=== PATIENT | female | born 1955 ===

== ENCOUNTER 2020-02-15 19:04 | Inpatient (IN) ==
[2020-02-15] MEDS ORDERED: ONDANSETRON 4 MG/2 ML VIAL IV PRN (21:31)
[2020-02-15] MEDS ORDERED: ZALEPLON 5 MG CAPSULE PO PRN (21:31)
[2020-02-15] MEDS ORDERED: GLUCAGON 1 MG VIAL IM PRN ×2 (21:31)
[2020-02-15] MEDS ORDERED: MORPHINE 4 MG/1 ML VIAL IV PRN (21:31)
[2020-02-15] MEDS ORDERED: guaiFENesin/DM ER 600-30 MG TABLET PO PRN (21:31)
[2020-02-15] MEDS ORDERED: NICOTINE 21 MG/24 HR PATCH TRANSDERM PRN (21:31)
[2020-02-15] MEDS ORDERED: DEXTROSE 50% 25 GM/50 ML VIAL IV PRN ×2 (21:31)
[2020-02-15] MEDS ORDERED: diphenhydrAMINE CAP 25 MG CAPSULE PO PRN (21:31)
[2020-02-15] MEDS ORDERED: AZITHROMYCIN INJ 500 MG in SODIUM CHLORIDE 0.9% 250 ML IV SCH (22:00)
[2020-02-15 22:41] LABS: Hematocrit 38.3 VOL% (35.7-47.0); Hemoglobin 12.7 GM/DL (12.0-16.0); Immature Granulocytes % 0.3 %; Immature Granulocytes Absolute 0.02 #; Lymphocytes # 0.4 10*3/uL (1.4-4.0); Lymphocytes % 6.3 % (21.3-54.2); Mean Corpuscular HGB Conc 33.2 GM/DL (32-36); Mean Corpuscular Volume 81.3 FL (87-102); Mean Platelet Volume 9.7 FL (9.6-12.0); Monocytes % 3.3 % (1.7-12.7); Neutrophils % 90.1 % (38.7-73.9); Platelet Count 195 T/CUMM (130-400); Red Blood Count 4.71 MC/CUMM (3.8-5.5); Red Cell Distribution Width 13.2 % (9.3-17.3); White Blood Count 6.1 T/CUMM (4-12)
[2020-02-15 22:42] LABS: Calcium 8.3 MG/DL (8.5-10.1); Osmolality,Calculated 269.7 MOS/KG (273-304)
[2020-02-15] MEDS: SODIUM CHLORIDE 0.9% 1,000 ML IV SCH (23:28)
[2020-02-15] MEDS: ALBUTEROL INHALER 18 GM INH SCH (23:28)
[2020-02-15] MEDS: LEVOFLOXACIN INJ 750 MG in PREMIX 1 EACH IV SCH (23:32)
[2020-02-16] MEDS: ALBUTEROL INHALER 18 GM INH SCH ×6 (03:30→23:40)
[2020-02-16 05:36] LABS: Hematocrit 39.3 VOL% (35.7-47.0); Hemoglobin 12.4 GM/DL (12.0-16.0); Immature Granulocytes % 0.4 %; Immature Granulocytes Absolute 0.02 #; Lymphocytes # 0.3 10*3/uL (1.4-4.0); Lymphocytes % 5.5 % (21.3-54.2); Mean Corpuscular HGB Conc 31.6 GM/DL (32-36); Mean Corpuscular Volume 83.6 FL (87-102); Mean Platelet Volume 9.7 FL (9.6-12.0); Monocytes % 1.6 % (1.7-12.7); Neutrophils % 92.5 % (38.7-73.9); Platelet Count 213 T/CUMM (130-400); Red Cell Distribution Width 13.2 % (9.3-17.3); White Blood Count 5.5 T/CUMM (4-12)
[2020-02-16 06:01] LABS: Albumin 2.9 G/DL (3.4-5.0); Osmolality,Calculated 274.1 MOS/KG (273-304); Risk Ratio 3.07; Total Protein 6.9 G/DL (6.4-8.3)
[2020-02-16 07:13] LABS: Band Neutrophils 4 % (0-10); Hypochromasia Slight; Lymphocytes 5 % (20-55); Microcytosis Slight; Segmented Neutrophils 88 % (50-85); Total Cells Counted 100
[2020-02-16 07:14] LABS: Platelet Estimate Normal
[2020-02-16] MEDS: PANTOPRAZOLE 40 MG TABLET PO SCH (08:30)
[2020-02-16] MEDS: INSULIN LISPRO 100 UNIT/ML SUBCUT SCH ×6 (08:30→21:45)
[2020-02-16] MEDS: DOCUSATE SODIUM 100 MG CAPSULE PO SCH ×2 (08:30→20:45)
[2020-02-16] MEDS ORDERED: ENOXAPARIN 40 MG/0.4 ML SYRINGE SUBCUT SCH (09:00)
[2020-02-16] MEDS ORDERED: AZITHROMYCIN 250 MG TABLET PO SCH (09:00)
[2020-02-16] MEDS: VANCOMYCIN INJ 1,250 MG in SODIUM CHLORIDE 0.9% 250 ML IV SCH ×2 (09:15→20:45)
[2020-02-16] MEDS: SODIUM CHLORIDE 0.9% 1,000 ML IV SCH (14:11)
[2020-02-16] MEDS: INSULIN GLARGINE 100 UNIT/ML SUBCUT SCH (22:03)
[2020-02-16] MEDS: LEVOFLOXACIN INJ 750 MG in PREMIX 1 EACH IV SCH (23:40)
[2020-02-17] MEDS: SODIUM CHLORIDE 0.9% 1,000 ML IV SCH ×2 (00:09→09:29)
[2020-02-17] MEDS: ALBUTEROL INHALER 18 GM INH SCH ×6 (02:34→23:11)
[2020-02-17 05:40] LABS: Basophils % 0.1 % (0.0-0.8); Hemoglobin 11.8 GM/DL (12.0-16.0); Immature Granulocytes % 0.6 %; Immature Granulocytes Absolute 0.06 #; Lymphocytes # 0.6 10*3/uL (1.4-4.0); Lymphocytes % 6.2 % (21.3-54.2); Mean Corpuscular HGB Conc 31.9 GM/DL (32-36); Mean Corpuscular Volume 81.5 FL (87-102); Mean Platelet Volume 9.8 FL (9.6-12.0); Monocytes % 3.9 % (1.7-12.7); Neutrophils % 89.2 % (38.7-73.9); Platelet Count 246 T/CUMM (130-400); Red Blood Count 4.54 MC/CUMM (3.8-5.5); Red Cell Distribution Width 13.2 % (9.3-17.3); White Blood Count 9.7 T/CUMM (4-12)
[2020-02-17 06:02] LABS: Alanine Aminotransferase 33 U/L (13-56); Albumin 2.9 G/DL (3.4-5.0); Alkaline Phosphatase 89 U/L (45-117); Aspartate Amino Transferase 34 U/L (0-37); Bilirubin,Direct < 0.100 MG/DL (0.0-0.20); Bilirubin,Indirect 0.5 MG/DL (0.0-1.0); Blood Urea Nitrogen 11 MG/DL (7-18); Calcium 8.4 MG/DL (8.5-10.1); Estimated Glom Filtration Rate 80 ML/MIN; Glucose 222 MG/DL (74-106); Total Protein 6.8 G/DL (6.4-8.3)
[2020-02-17] MEDS ORDERED: guaiFENesin 200 MG/10 ML UDCUP PO PRN (07:51)
[2020-02-17] MEDS ORDERED: FUROSEMIDE 40 MG/4 ML VIAL ONE (07:59)
[2020-02-17] MEDS ORDERED: POLYVINYL ALCOHOL 1.4% OPH SOLN 15 ML BOTTLE BOTH EYES PRN (09:35)
[2020-02-17] MEDS: ENOXAPARIN 40 MG/0.4 ML SYRINGE SUBCUT SCH ×2 (10:33→22:20)
[2020-02-17] MEDS: INSULIN LISPRO 100 UNIT/ML SUBCUT SCH ×8 (10:33→22:20)
[2020-02-17] MEDS: PANTOPRAZOLE 40 MG TABLET PO SCH (10:34)
[2020-02-17] MEDS: VANCOMYCIN INJ 1,250 MG in SODIUM CHLORIDE 0.9% 250 ML IV SCH ×2 (10:34→21:00)
[2020-02-17] MEDS: DOCUSATE SODIUM 100 MG CAPSULE PO SCH ×2 (10:34→21:00)
[2020-02-17] MEDS: ACETAMINOPHEN 325 MG TABLET PO PRN (13:58)
[2020-02-17] MEDS: AZITHROMYCIN 250 MG TABLET PO SCH (17:07)
[2020-02-17] MEDS: OLOPATADINE 0.1% OPH SOLN 5 ML BOTTLE BOTH EYES SCH (21:00)
[2020-02-17] MEDS: SIMVASTATIN 10 MG TABLET PO SCH (21:00)
[2020-02-17] MEDS: INSULIN GLARGINE 100 UNIT/ML SUBCUT SCH (22:20)
[2020-02-18] MEDS ORDERED: ALPRAZolam 0.25 MG TABLET PO PRN (01:27)
[2020-02-18] MEDS: ALBUTEROL INHALER 18 GM INH SCH ×3 (03:52→18:09)
[2020-02-18 06:32] LABS: Albumin 2.6 G/DL (3.4-5.0); Bilirubin,Total 0.5 MG/DL (0.2-1.0); Calcium 8.1 MG/DL (8.5-10.1); Total Protein 6.5 G/DL (6.4-8.3)
[2020-02-18] MEDS: PANTOPRAZOLE 40 MG TABLET PO SCH (09:00)
[2020-02-18] MEDS: AZITHROMYCIN 250 MG TABLET PO SCH (09:00)
[2020-02-18] MEDS: DOCUSATE SODIUM 100 MG CAPSULE PO SCH ×2 (09:00→21:28)
[2020-02-18] MEDS: VANCOMYCIN INJ 1,250 MG in SODIUM CHLORIDE 0.9% 250 ML IV SCH ×2 (09:00→20:56)
[2020-02-18] MEDS: MULTIVITAMIN (CENTRUM) TABLET PO SCH (09:00)
[2020-02-18] MEDS: ACETAMINOPHEN 325 MG TABLET PO PRN (09:00)
[2020-02-18] MEDS: MONTELUKAST 10 MG TABLET PO SCH (09:01)
[2020-02-18] MEDS: ENOXAPARIN 40 MG/0.4 ML SYRINGE SUBCUT SCH ×2 (09:10→21:31)
[2020-02-18] MEDS: INSULIN LISPRO 100 UNIT/ML SUBCUT SCH ×5 (09:11→17:31)
[2020-02-18] MEDS: OLOPATADINE 0.1% OPH SOLN 5 ML BOTTLE BOTH EYES SCH ×2 (09:11→22:22)
[2020-02-18] MEDS ORDERED: LORazepam 2 MG/1 ML VIAL IV ONE (10:30)
[2020-02-18 11:30] LABS: ABG Base Excess 0.6 MMOL/L (-2.5-2.5); ABG HCO3 24.7 MMOL/L (20-26); ABG Oxygen Saturation 84.6 % (95-100); ABG PCO2 38.7 MM HG (35-48); ABG PH 7.417 (7.35-7.45); ABG PO2 51.4 MM HG (80-95); ABG TCO2 22.2 MMOL/L (23-27)
[2020-02-18] MEDS: cefTRIAXone 1,000 MG in SYRINGE 1 EACH IV SCH (12:35)
[2020-02-18] MEDS ORDERED: FUROSEMIDE 40 MG/4 ML VIAL IV ONE (14:29)
[2020-02-18 20:51] LABS: ABG Base Excess -0.4 MMOL/L (-2.5-2.5); ABG Oxygen Saturation 94.9 % (95-100); ABG PCO2 33.9 MM HG (35-48); ABG PO2 77.7 MM HG (80-95); ABG TCO2 19.9 MMOL/L (23-27)
[2020-02-18] MEDS: SIMVASTATIN 10 MG TABLET PO SCH (21:28)
[2020-02-18] MEDS: LORazepam 2 MG/1 ML VIAL IV PRN (21:32)
[2020-02-18] MEDS: INSULIN GLARGINE 100 UNIT/ML SUBCUT SCH (22:22)
[2020-02-19] MEDS: INSULIN LISPRO 100 UNIT/ML SUBCUT SCH ×4 (00:11→17:51)
[2020-02-19] MEDS: VANCOMYCIN INJ 1,250 MG in SODIUM CHLORIDE 0.9% 250 ML IV SCH (08:01)
[2020-02-19] MEDS: MULTIVITAMIN (CENTRUM) TABLET PO SCH (08:02)
[2020-02-19] MEDS: MONTELUKAST 10 MG TABLET PO SCH (08:02)
[2020-02-19] MEDS: DOCUSATE SODIUM 100 MG CAPSULE PO SCH ×2 (08:02→21:04)
[2020-02-19] MEDS: ENOXAPARIN 40 MG/0.4 ML SYRINGE SUBCUT SCH ×2 (08:02→21:04)
[2020-02-19] MEDS: PANTOPRAZOLE 40 MG TABLET PO SCH (08:02)
[2020-02-19] MEDS: AZITHROMYCIN 250 MG TABLET PO SCH (08:02)
[2020-02-19] MEDS: OLOPATADINE 0.1% OPH SOLN 5 ML BOTTLE BOTH EYES SCH ×2 (08:05→21:05)
[2020-02-19 08:10] LABS: Basophils % 0.1 % (0.0-0.8); Eosinophils % 0.1 % (0.00-10.9); Hematocrit 40.1 VOL% (35.7-47.0); Hemoglobin 12.6 GM/DL (12.0-16.0); Immature Granulocytes % 0.7 %; Immature Granulocytes Absolute 0.07 #; Lymphocytes # 0.8 10*3/uL (1.4-4.0); Lymphocytes % 7.2 % (21.3-54.2); Mean Corpuscular HGB Conc 31.4 GM/DL (32-36); Mean Corpuscular Volume 83.5 FL (87-102); Mean Platelet Volume 9.3 FL (9.6-12.0); Monocytes % 3.9 % (1.7-12.7); Platelet Count 287 T/CUMM (130-400); Red Cell Distribution Width 13.6 % (9.3-17.3); White Blood Count 10.5 T/CUMM (4-12)
[2020-02-19 08:31] LABS: Calcium 6.4 MG/DL (8.5-10.1); Osmolality,Calculated 283.1 MOS/KG (273-304)
[2020-02-19] MEDS ORDERED: MAGNESIUM SULF RIDER 4 GM in PREMIX 1 EACH IV PRN ×2 (09:00→12:49)
[2020-02-19] MEDS ORDERED: MAGNESIUM SULF RIDER 2 GM in PREMIX 1 EACH IV SCH (09:00)
[2020-02-19] MEDS ORDERED: MAGNESIUM SULF RIDER 2 GM in PREMIX 1 EACH IV PRN (09:11)
[2020-02-19] MEDS: cefTRIAXone 1,000 MG in SYRINGE 1 EACH IV SCH (09:13)
[2020-02-19] MEDS ORDERED: DEXAMETHASONE 4 MG/1 ML VIAL IV SCH (15:30)
[2020-02-19] MEDS ORDERED: SODIUM CHLORIDE 0.9% 250 ML IV ONE (15:32)
[2020-02-19] MEDS: DEXAMETHASONE 4 MG/1 ML VIAL IV SCH (15:54)
[2020-02-19] MEDS: SODIUM CHLORIDE 0.9% 1,000 ML IV SCH (16:30)
[2020-02-19] MEDS: INSULIN GLARGINE 100 UNIT/ML SUBCUT SCH (21:04)
[2020-02-19] MEDS: CALCIUM CARBONATE CHEW 500 MG TABLET PO SCH (21:05)
[2020-02-19] MEDS: SIMVASTATIN 10 MG TABLET PO SCH (21:05)
[2020-02-19] MEDS: POTASSIUM CHLORIDE RIDER 10 MEQ in PREMIX 1 EACH IV PRN (21:34)
[2020-02-20] MEDS: INSULIN LISPRO 100 UNIT/ML SUBCUT SCH ×4 (00:38→17:50)
[2020-02-20] MEDS: SODIUM CHLORIDE 0.9% 1,000 ML IV SCH ×3 (00:43→22:13)
[2020-02-20] MEDS: POTASSIUM CHLORIDE RIDER 10 MEQ in PREMIX 1 EACH IV PRN (00:44)
[2020-02-20] MEDS ORDERED: SODIUM CHLORIDE 0.9% 500 ML IV ONE (01:03)
[2020-02-20 05:02] LABS: Basophils % 0.1 % (0.0-0.8); Hematocrit 37.6 VOL% (35.7-47.0); Hemoglobin 11.8 GM/DL (12.0-16.0); Immature Granulocytes % 0.8 %; Immature Granulocytes Absolute 0.08 #; Lymphocytes # 0.4 10*3/uL (1.4-4.0); Lymphocytes % 4.4 % (21.3-54.2); Mean Corpuscular HGB Conc 31.4 GM/DL (32-36); Mean Corpuscular Volume 83.9 FL (87-102); Mean Platelet Volume 9.2 FL (9.6-12.0); Monocytes % 3.5 % (1.7-12.7); Neutrophils % 91.2 % (38.7-73.9); Platelet Count 263 T/CUMM (130-400); Red Blood Count 4.48 MC/CUMM (3.8-5.5); Red Cell Distribution Width 13.2 % (9.3-17.3); White Blood Count 9.8 T/CUMM (4-12)
[2020-02-20 05:25] LABS: Calcium 7.5 MG/DL (8.5-10.1); Osmolality,Calculated 276.5 MOS/KG (273-304)
[2020-02-20 05:51] LABS: Lymphocytes 5 % (20-55); Segmented Neutrophils 94 % (50-85); Total Cells Counted 100
[2020-02-20 05:52] LABS: Burr Cells Slight; Ovalocytes Slight; Platelet Estimate Adequate
[2020-02-20] MEDS: ENOXAPARIN 40 MG/0.4 ML SYRINGE SUBCUT SCH (08:13)
[2020-02-20] MEDS: AZITHROMYCIN 250 MG TABLET PO SCH (08:14)
[2020-02-20] MEDS: MULTIVITAMIN (CENTRUM) TABLET PO SCH (08:14)
[2020-02-20] MEDS: MONTELUKAST 10 MG TABLET PO SCH (08:14)
[2020-02-20] MEDS: DOCUSATE SODIUM 100 MG CAPSULE PO SCH ×2 (08:14→20:52)
[2020-02-20] MEDS: CALCIUM CARBONATE CHEW 500 MG TABLET PO SCH ×2 (08:14→20:52)
[2020-02-20] MEDS: PANTOPRAZOLE 40 MG TABLET PO SCH (08:14)
[2020-02-20] MEDS: OLOPATADINE 0.1% OPH SOLN 5 ML BOTTLE BOTH EYES SCH ×2 (08:56→20:52)
[2020-02-20] MEDS: cefTRIAXone 1,000 MG in SYRINGE 1 EACH IV SCH (09:00)
[2020-02-20] MEDS: DEXAMETHASONE 4 MG/1 ML VIAL IV SCH (15:09)
[2020-02-20] MEDS: INSULIN GLARGINE 100 UNIT/ML SUBCUT SCH (20:52)
[2020-02-20] MEDS: SIMVASTATIN 10 MG TABLET PO SCH (20:52)
[2020-02-21] MEDS: INSULIN LISPRO 100 UNIT/ML SUBCUT SCH ×5 (00:49→21:33)
[2020-02-21 01:30] LABS: Apearance,Urine CLOUDY (Clear); Bilirubin,Urine Negative (Negative); Blood, Urine Large mg/dL (Negative); Glucose,Urine (UA) Negative (Negative); Ketones,Urine 5 mg/dL (Negative); Mucus,Urine Occasional /LPF (Occasional); Nitrite,Urine Negative (Negative); Protein,Urine 100 MG/DL; RBC,Urine 135 /HPF (0-4); Squamous Epithelial Cell,Urine Occasional /HPF (0-10); Urine Color Amber (Yellow); Urine Specific Gravity 1.009 (1.001-1.035); Urine Urobilinogen < 2.0 EU/DL (0.2-1.0); WBC,Urine 199 /HPF (0-6)
[2020-02-21 04:33] LABS: ABG Base Excess -9.4 MMOL/L (-2.5-2.5); ABG HCO3 15.5 MMOL/L (20-26); ABG Oxygen Saturation 98.1 % (95-100); ABG PH 7.318 (7.35-7.45); ABG PO2 157.1 MM HG (80-95); ABG TCO2 16.5 MMOL/L (23-27); Allen Test Positive; Pt O2 Delivery Device BIPAP
[2020-02-21 04:38] LABS: Basophils % 0.1 % (0.0-0.8); Hematocrit 37.2 VOL% (35.7-47.0); Hemoglobin 11.8 GM/DL (12.0-16.0); Immature Granulocytes % 0.8 %; Lymphocytes # 0.6 10*3/uL (1.4-4.0); Lymphocytes % 4.4 % (21.3-54.2); Mean Corpuscular HGB Conc 31.7 GM/DL (32-36); Mean Corpuscular Volume 82.5 FL (87-102); Mean Platelet Volume 9.2 FL (9.6-12.0); Neutrophils % 88.7 % (38.7-73.9); Platelet Count 336 T/CUMM (130-400); Red Blood Count 4.51 MC/CUMM (3.8-5.5); Red Cell Distribution Width 13.2 % (9.3-17.3); White Blood Count 13.3 T/CUMM (4-12)
[2020-02-21 05:03] LABS: Calcium 7.4 MG/DL (8.5-10.1); Osmolality,Calculated 276.8 MOS/KG (273-304)
[2020-02-21 05:48] LABS: Lymphocytes 1 % (20-55); Platelet Estimate Adequate; Segmented Neutrophils 93 % (50-85); Total Cells Counted 100
[2020-02-21] MEDS ORDERED: ENOXAPARIN 40 MG/0.4 ML SYRINGE SUBCUT SCH (09:00)
[2020-02-21] MEDS: SODIUM CHLORIDE 0.9% 1,000 ML IV SCH ×2 (09:36→17:25)
[2020-02-21] MEDS: MULTIVITAMIN (CENTRUM) TABLET PO SCH (09:36)
[2020-02-21] MEDS: DOCUSATE SODIUM 100 MG CAPSULE PO SCH ×2 (09:36→20:38)
[2020-02-21] MEDS: AZITHROMYCIN 250 MG TABLET PO SCH (09:37)
[2020-02-21] MEDS: MONTELUKAST 10 MG TABLET PO SCH (09:37)
[2020-02-21] MEDS: OLOPATADINE 0.1% OPH SOLN 5 ML BOTTLE BOTH EYES SCH ×2 (09:37→21:34)
[2020-02-21] MEDS: PANTOPRAZOLE 40 MG TABLET PO SCH (09:37)
[2020-02-21] MEDS: CALCIUM CARBONATE CHEW 500 MG TABLET PO SCH ×2 (09:37→20:38)
[2020-02-21] MEDS: cefTRIAXone 1,000 MG in SYRINGE 1 EACH IV SCH (09:37)
[2020-02-21] MEDS: LORazepam 2 MG/1 ML VIAL IV PRN (13:49)
[2020-02-21] MEDS: DEXAMETHASONE 4 MG/1 ML VIAL IV SCH (15:54)
[2020-02-21] MEDS ORDERED: HALOPERIDOL 5 MG/ML AMP IV ONE (16:09)
[2020-02-21] MEDS ORDERED: ZIPRASIDONE 20 MG/1 ML VIAL IM ONE (18:41)
[2020-02-21] MEDS: SIMVASTATIN 10 MG TABLET PO SCH (20:38)
[2020-02-21] MEDS: INSULIN GLARGINE 100 UNIT/ML SUBCUT SCH (21:33)
[2020-02-21] MEDS: ENOXAPARIN 40 MG/0.4 ML SYRINGE SUBCUT SCH (21:33)
[2020-02-21] MEDS ORDERED: HALOPERIDOL 5 MG/ML AMP IM ONE (21:47)
[2020-02-22] MEDS: LORazepam 2 MG/1 ML VIAL IV PRN (00:53)
[2020-02-22] MEDS ORDERED: HALOPERIDOL 5 MG/ML AMP IM PRN (01:06)
[2020-02-22] MEDS: SODIUM CHLORIDE 0.9% 1,000 ML IV SCH ×2 (04:00→07:54)
[2020-02-22 04:54] LABS: ABG Base Excess -14.2 MMOL/L (-2.5-2.5); ABG HCO3 13.8 MMOL/L (20-26); ABG Oxygen Saturation 87.2 % (95-100); ABG PCO2 39.6 MM HG (35-48); ABG PO2 61.2 MM HG (80-95)
[2020-02-22 04:57] LABS: ABG PH 7.159 (7.35-7.45)
[2020-02-22 05:45] LABS: Basophils % 0.2 % (0.0-0.8); Hematocrit 36.6 VOL% (35.7-47.0); Hemoglobin 11.8 GM/DL (12.0-16.0); Immature Granulocytes % 0.4 %; Immature Granulocytes Absolute 0.04 #; Lymphocytes # 0.3 10*3/uL (1.4-4.0); Lymphocytes % 3.2 % (21.3-54.2); Mean Corpuscular HGB Conc 32.2 GM/DL (32-36); Mean Corpuscular Volume 82.1 FL (87-102); Mean Platelet Volume 9.6 FL (9.6-12.0); Monocytes % 2.2 % (1.7-12.7); Platelet Count 317 T/CUMM (130-400); Red Blood Count 4.46 MC/CUMM (3.8-5.5)
[2020-02-22 05:51] LABS: Albumin 2.1 G/DL (3.4-5.0); Calcium 7.2 MG/DL (8.5-10.1)
[2020-02-22 05:53] LABS: Calcium 7.2 MG/DL (8.5-10.1); Osmolality,Calculated 288.5 MOS/KG (273-304)
[2020-02-22] MEDS ORDERED: SODIUM BICARB INJ 100 MEQ in STERILE WATER INJ 1,000 ML IV SCH (08:00)
[2020-02-22] MEDS ORDERED: ETOMIDATE 20 MG/10 ML VIAL IV ONE ×3 (08:52→09:21)
[2020-02-22] MEDS ORDERED: SUCCINYLCHOLINE 200 MG/10 ML VIAL ONE ×2 (08:53→09:21)
[2020-02-22] MEDS: CALCIUM CARBONATE CHEW 500 MG TABLET PO SCH ×2 (09:21→22:05)
[2020-02-22] MEDS ORDERED: SUCCINYLCHOLINE 200 MG/10 ML VIAL IV ONE (09:21)
[2020-02-22] MEDS: DOCUSATE SODIUM 100 MG CAPSULE PO SCH ×2 (09:21→22:05)
[2020-02-22] MEDS: INSULIN LISPRO 100 UNIT/ML SUBCUT SCH ×3 (09:21→17:56)
[2020-02-22] MEDS: MONTELUKAST 10 MG TABLET PO SCH (09:22)
[2020-02-22] MEDS ORDERED: MIDAZOLAM 10 MG/2 ML VIAL IM ONE (09:33)
[2020-02-22] MEDS ORDERED: MIDAZOLAM 10 MG/2 ML VIAL ONE (09:33)
[2020-02-22] MEDS ORDERED: ATROPINE 1 MG/10 ML SYRINGE ONE (09:33)
[2020-02-22] MEDS ORDERED: ATROPINE 1 MG/10 ML SYRINGE IV ONE (09:34)
[2020-02-22] MEDS ORDERED: DOPamine 800 MG/250 ML PREMIX IV ONE (09:35)
[2020-02-22] MEDS ORDERED: NOREPINEPHRINE 4 MG/4 ML VIAL IV ONE (09:35)
[2020-02-22] MEDS ORDERED: DOPamine 800 MG/250 ML PREMIX IV PRN (09:44)
[2020-02-22] MEDS: MULTIVITAMIN (CENTRUM) TABLET PO SCH (10:31)
[2020-02-22] MEDS: PANTOPRAZOLE 40 MG TABLET PO SCH (10:31)
[2020-02-22 10:48] LABS: Band Neutrophils 22 % (0-10); Lymphocytes 3 % (20-55); Metamyelocytes 1 %; Microcytosis 2+; Segmented Neutrophils 73 % (50-85); Total Cells Counted 100
[2020-02-22 10:49] LABS: Burr Cells Few; Ovalocytes Slight; Platelet Estimate Adequate; Polychromasia Slight
[2020-02-22] MEDS: NOREPINEPHRINE 8 MG in SODIUM CHLORIDE 0.9% 242 ML IV PRN (11:00)
[2020-02-22 11:15] LABS: Allen Test Positive; Pt O2 Delivery Device Ventilator
[2020-02-22 11:16] LABS: ABG Base Excess -14.1 MMOL/L (-2.5-2.5); ABG HCO3 13.6 MMOL/L (20-26); ABG Oxygen Saturation 90.5 % (95-100); ABG PCO2 49.5 MM HG (35-48); ABG PO2 74.2 MM HG (80-95); ABG TCO2 14.8 MMOL/L (23-27)
[2020-02-22] MEDS ORDERED: SODIUM BICARBONATE 50 MEQ/50 ML VIAL IV ONE ×2 (11:16→11:18)
[2020-02-22 11:17] LABS: ABG PH 7.109 (7.35-7.45)
[2020-02-22] MEDS ORDERED: DILTIAZEM 25 MG/5 ML VIAL IV ONE (11:17)
[2020-02-22] MEDS ORDERED: DILTIAZEM 50 MG/10 ML VIAL IV ONE (11:18)
[2020-02-22] MEDS: OLOPATADINE 0.1% OPH SOLN 5 ML BOTTLE BOTH EYES SCH ×2 (11:45→22:05)
[2020-02-22] MEDS: MIDAZOLAM 100 MG in SODIUM CHLORIDE 0.9% 80 ML IV PRN (12:08)
[2020-02-22] MEDS: ENOXAPARIN 40 MG/0.4 ML SYRINGE SUBCUT SCH (12:09)
[2020-02-22] MEDS: cefTRIAXone 1,000 MG in SYRINGE 1 EACH IV SCH (12:09)
[2020-02-22] MEDS: PIPERACILLIN/TAZOBACTAM 2,250 MG in SODIUM CHLORIDE 0.9% 100 ML IV SCH (15:06)
[2020-02-22] MEDS: DEXAMETHASONE 4 MG/1 ML VIAL IV SCH (15:06)
[2020-02-22 15:36] LABS: Allen Test Positive; Pt O2 Delivery Device Ventilator
[2020-02-22 15:38] LABS: ABG Base Excess -8.7 MMOL/L (-2.5-2.5); ABG HCO3 17.4 MMOL/L (20-26); ABG Oxygen Saturation 96.9 % (95-100); ABG PCO2 42.1 MM HG (35-48); ABG PH 7.247 (7.35-7.45); ABG PO2 99.2 MM HG (80-95); ABG TCO2 16.8 MMOL/L (23-27)
[2020-02-22] MEDS: HEPARIN DRIP 25,000 UNITS/500 ML PREMIX IV SCH (16:04)
[2020-02-22] MEDS: SODIUM BICARB INJ 100 MEQ in DEXTROSE 5% 1,000 ML IV SCH (16:05)
[2020-02-22] MEDS: INSULIN GLARGINE 100 UNIT/ML SUBCUT SCH (22:05)
[2020-02-22] MEDS: SIMVASTATIN 10 MG TABLET PO SCH (22:05)
[2020-02-23] MEDS: INSULIN LISPRO 100 UNIT/ML SUBCUT SCH ×4 (00:04→18:12)
[2020-02-23] MEDS: PIPERACILLIN/TAZOBACTAM 2,250 MG in SODIUM CHLORIDE 0.9% 100 ML IV SCH ×2 (00:45→12:18)
[2020-02-23] MEDS: MIDAZOLAM 100 MG in SODIUM CHLORIDE 0.9% 80 ML IV PRN ×2 (03:03→21:20)
[2020-02-23 04:56] LABS: ABG Base Excess -7.5 MMOL/L (-2.5-2.5); ABG HCO3 18.4 MMOL/L (20-26); ABG Oxygen Saturation 99.2 % (95-100); ABG PCO2 39.4 MM HG (35-48); ABG PH 7.285 (7.35-7.45); ABG TCO2 17.3 MMOL/L (23-27); Allen Test Positive; Pt O2 Delivery Device Ventilator
[2020-02-23 06:03] LABS: Hematocrit 28.7 VOL% (35.7-47.0); Hemoglobin 9.3 GM/DL (12.0-16.0); Immature Granulocytes % 0.7 %; Immature Granulocytes Absolute 0.06 #; Lymphocytes # 0.4 10*3/uL (1.4-4.0); Lymphocytes % 4.7 % (21.3-54.2); Mean Corpuscular HGB Conc 32.4 GM/DL (32-36); Mean Corpuscular Volume 81.5 FL (87-102); Mean Platelet Volume 9.9 FL (9.6-12.0); Neutrophils % 92.6 % (38.7-73.9); Platelet Count 179 T/CUMM (130-400); Red Blood Count 3.52 MC/CUMM (3.8-5.5); Red Cell Distribution Width 13.9 % (9.3-17.3); White Blood Count 8.7 T/CUMM (4-12)
[2020-02-23 06:11] LABS: Calcium 6.9 MG/DL (8.5-10.1); Osmolality,Calculated 295.4 MOS/KG (273-304)
[2020-02-23] MEDS: ERGOCALCIFEROL 50,000 UNIT CAPSULE PO SCH (08:48)
[2020-02-23] MEDS: CALCIUM CARBONATE CHEW 500 MG TABLET PO SCH ×2 (08:48→21:19)
[2020-02-23] MEDS: DOCUSATE SODIUM 100 MG/10 ML UDCUP PO SCH ×2 (08:48→21:19)
[2020-02-23] MEDS: MONTELUKAST 10 MG TABLET PO SCH (08:48)
[2020-02-23] MEDS: PANTOPRAZOLE 40 MG VIAL IV SCH (08:48)
[2020-02-23] MEDS: MULTIVITAMIN LIQUID (CENTRUM) 60 ML BOTTLE PO SCH (08:51)
[2020-02-23] MEDS: OLOPATADINE 0.1% OPH SOLN 5 ML BOTTLE BOTH EYES SCH ×2 (08:54→21:19)
[2020-02-23 10:33] LABS: Band Neutrophils 4 % (0-10); Burr Cells Few; Hypochromasia 2+; Lymphocytes 6 % (20-55); Platelet Estimate Adequate; Schistocytes Slight; Segmented Neutrophils 88 % (50-85); Total Cells Counted 100
[2020-02-23] MEDS ORDERED: CLINDAMYCIN INJ 900 MG in PREMIX 1 EACH IV ONE (11:42)
[2020-02-23 11:54] LABS: INR 1.1; PT Patient Result 11.6 SECS (9.8-11.9); Partial Thromboplastin Time 59.2 SECS (23.9-33.8)
[2020-02-23] MEDS: SODIUM BICARB INJ 100 MEQ in DEXTROSE 5% 1,000 ML IV SCH (15:05)
[2020-02-23] MEDS: DEXAMETHASONE 4 MG/1 ML VIAL IV SCH (15:06)
[2020-02-23] MEDS: HEPARIN DRIP 25,000 UNITS/500 ML PREMIX IV SCH (15:06)
[2020-02-23] MEDS: INSULIN GLARGINE 100 UNIT/ML SUBCUT SCH (21:19)
[2020-02-23] MEDS: SIMVASTATIN 10 MG TABLET PO SCH (21:19)
[2020-02-24] MEDS: INSULIN LISPRO 100 UNIT/ML SUBCUT SCH ×4 (02:19→17:34)
[2020-02-24] MEDS: PIPERACILLIN/TAZOBACTAM 2,250 MG in SODIUM CHLORIDE 0.9% 100 ML IV SCH ×2 (03:00→12:35)
[2020-02-24 05:18] LABS: ABG Base Excess -7.6 MMOL/L (-2.5-2.5); ABG HCO3 18.3 MMOL/L (20-26); ABG Oxygen Saturation 99.2 % (95-100); ABG PCO2 38.2 MM HG (35-48); ABG PH 7.291 (7.35-7.45); ABG TCO2 17.1 MMOL/L (23-27); Allen Test Positive; Pt O2 Delivery Device Ventilator
[2020-02-24 05:36] LABS: Basophils % 0.1 % (0.0-0.8); Hematocrit 27.9 VOL% (35.7-47.0); Hemoglobin 8.9 GM/DL (12.0-16.0); Immature Granulocytes Absolute 0.21 #; Lymphocytes # 0.4 10*3/uL (1.4-4.0); Lymphocytes % 3.8 % (21.3-54.2); Mean Corpuscular HGB Conc 31.9 GM/DL (32-36); Mean Corpuscular Volume 82.3 FL (87-102); Mean Platelet Volume 10.1 FL (9.6-12.0); Monocytes % 1.4 % (1.7-12.7); Neutrophils % 92.7 % (38.7-73.9); Platelet Count 170 T/CUMM (130-400); Red Blood Count 3.39 MC/CUMM (3.8-5.5); Red Cell Distribution Width 14.1 % (9.3-17.3); White Blood Count 10.6 T/CUMM (4-12)
[2020-02-24] MEDS ORDERED: CLINDAMYCIN INJ 900 MG in PREMIX 1 EACH IV ONE (06:00)
[2020-02-24 06:02] LABS: Band Neutrophils 2 % (0-10); Hypochromasia 1+; Lymphocytes 5 % (20-55); Platelet Estimate Adequate; Segmented Neutrophils 93 % (50-85); Total Cells Counted 100
[2020-02-24 06:03] LABS: Burr Cells Slight; Microcytosis 1+; Ovalocytes Slight
[2020-02-24 06:06] LABS: Calcium 7.4 MG/DL (8.5-10.1); Osmolality,Calculated 298.9 MOS/KG (273-304)
[2020-02-24 07:12] LABS: Hepatitis B Core IgM Quant 0.19 Index; Hepatitis B Surface Ag Quant < 0.10 Index; Hepatitis B Surface Ag Result Negative (Negative); Hepatitis C Virus Ab Quant 0.11 Index; Hepatitis C Virus Ab Result Negative (Negative)
[2020-02-24] MEDS: MULTIVITAMIN LIQUID (CENTRUM) 60 ML BOTTLE PO SCH (08:51)
[2020-02-24] MEDS: CALCIUM CARBONATE CHEW 500 MG TABLET PO SCH ×2 (08:52→21:43)
[2020-02-24] MEDS: DOCUSATE SODIUM 100 MG/10 ML UDCUP PO SCH ×2 (08:52→21:43)
[2020-02-24] MEDS: MONTELUKAST 10 MG TABLET PO SCH (08:52)
[2020-02-24] MEDS: PANTOPRAZOLE 40 MG VIAL IV SCH (08:52)
[2020-02-24] MEDS: OLOPATADINE 0.1% OPH SOLN 5 ML BOTTLE BOTH EYES SCH ×2 (08:52→21:43)
[2020-02-24] MEDS ORDERED: TISSUE ADHESIVE 1 EACH APPLICATOR TOP ONE (15:02)
[2020-02-24] MEDS ORDERED: BUPIVACAINE MPF 0.25% 30 ML VIAL ONE (15:02)
[2020-02-24] MEDS ORDERED: HEPARIN 5,000 UNIT/1 ML VIAL ONE (15:02)
[2020-02-24] MEDS ORDERED: LIDOCAINE 1%/EPI INJ 20 ML VIAL ONE (15:02)
[2020-02-24] MEDS ORDERED: VECURONIUM 10 MG VIAL IV ONE (15:34)
[2020-02-24] MEDS ORDERED: MIDAZOLAM 10 MG/2 ML VIAL ONE (15:34)
[2020-02-24] MEDS: DEXAMETHASONE 4 MG/1 ML VIAL IV SCH (16:32)
[2020-02-24] MEDS: SODIUM BICARB INJ 100 MEQ in DEXTROSE 5% 1,000 ML IV SCH (16:42)
[2020-02-24] MEDS ORDERED: SEVOFLURANE 1 UNIT/15 MINUTE INH ONE (17:30)
[2020-02-24] MEDS: HEPARIN DRIP 25,000 UNITS/500 ML PREMIX IV SCH (18:44)
[2020-02-24 20:39] LABS: ABG Base Excess -2.8 MMOL/L (-2.5-2.5); ABG HCO3 22.1 MMOL/L (20-26); ABG Oxygen Saturation 99.5 % (95-100); ABG PCO2 27.9 MM HG (35-48); ABG PH 7.465 (7.35-7.45); ABG TCO2 18.3 MMOL/L (23-27); Allen Test Positive; Pt O2 Delivery Device Ventilator
[2020-02-24] MEDS: SIMVASTATIN 10 MG TABLET PO SCH (21:43)
[2020-02-24] MEDS: INSULIN GLARGINE 100 UNIT/ML SUBCUT SCH (21:43)
[2020-02-25] MEDS: INSULIN LISPRO 100 UNIT/ML SUBCUT SCH ×4 (00:30→18:15)
[2020-02-25] MEDS: PIPERACILLIN/TAZOBACTAM 2,250 MG in SODIUM CHLORIDE 0.9% 100 ML IV SCH (01:36)
[2020-02-25 03:43] LABS: ABG Base Excess -5.6 MMOL/L (-2.5-2.5); ABG HCO3 20.4 MMOL/L (20-26); ABG Oxygen Saturation 91.6 % (95-100); ABG PCO2 42.2 MM HG (35-48); ABG PH 7.302 (7.35-7.45); ABG PO2 71.8 MM HG (80-95); ABG TCO2 21.7 MMOL/L (23-27); Allen Test Positive; Pt O2 Delivery Device Ventilator
[2020-02-25 04:34] LABS: Basophils % 0.1 % (0.0-0.8); Eosinophils % 0.1 % (0.00-10.9); Hematocrit 26.9 VOL% (35.7-47.0); Hemoglobin 8.7 GM/DL (12.0-16.0); Immature Granulocytes % 5.8 %; Immature Granulocytes Absolute 0.83 #; Lymphocytes # 0.4 10*3/uL (1.4-4.0); Mean Corpuscular HGB Conc 32.3 GM/DL (32-36); Mean Corpuscular Volume 82.3 FL (87-102); Mean Platelet Volume 10.1 FL (9.6-12.0); Monocytes % 1.9 % (1.7-12.7); Neutrophils % 89.1 % (38.7-73.9); Platelet Count 151 T/CUMM (130-400); Red Blood Count 3.27 MC/CUMM (3.8-5.5); Red Cell Distribution Width 14.1 % (9.3-17.3); White Blood Count 14.2 T/CUMM (4-12)
[2020-02-25 04:49] LABS: Calcium 7.5 MG/DL (8.5-10.1); Osmolality,Calculated 293.8 MOS/KG (273-304)
[2020-02-25 05:22] LABS: Band Neutrophils 4 % (0-10); Lymphocytes 4 % (20-55); Metamyelocytes 1 %; Microcytosis 1+; Nucleated Red Blood Cells 1 (0-5); Segmented Neutrophils 90 % (50-85); Total Cells Counted 100
[2020-02-25 05:23] LABS: Hypochromasia 1+
[2020-02-25] MEDS: SODIUM BICARB INJ 100 MEQ in DEXTROSE 5% 1,000 ML IV SCH ×2 (06:31→11:18)
[2020-02-25] MEDS: HEPARIN DRIP 25,000 UNITS/500 ML PREMIX IV SCH (06:32)
[2020-02-25] MEDS ORDERED: HEPARIN 10,000 UNIT/10 ML VIAL IV SCH (07:15)
[2020-02-25] MEDS: DOCUSATE SODIUM 100 MG/10 ML UDCUP PO SCH ×2 (09:15→21:05)
[2020-02-25] MEDS: MULTIVITAMIN LIQUID (CENTRUM) 60 ML BOTTLE PO SCH (09:15)
[2020-02-25] MEDS: MONTELUKAST 10 MG TABLET PO SCH (09:15)
[2020-02-25] MEDS: CALCIUM CARBONATE CHEW 500 MG TABLET PO SCH ×2 (09:15→21:05)
[2020-02-25] MEDS: PANTOPRAZOLE 40 MG VIAL IV SCH (09:18)
[2020-02-25] MEDS: OLOPATADINE 0.1% OPH SOLN 5 ML BOTTLE BOTH EYES SCH ×2 (11:18→21:06)
[2020-02-25] MEDS: PIPERACILLIN/TAZOBACTAM 3,375 MG in SODIUM CHLORIDE 0.9% 100 ML IV SCH (13:38)
[2020-02-25] MEDS: DEXAMETHASONE 4 MG/1 ML VIAL IV SCH (16:12)
[2020-02-25] MEDS: ROCURONIUM 500 MG in SODIUM CHLORIDE 0.9% 500 ML IV PRN (16:15)
[2020-02-25] MEDS ORDERED: DIGOXIN 0.5 MG/2 ML AMP IV ONE (19:15)
[2020-02-25] MEDS: SIMVASTATIN 10 MG TABLET PO SCH (21:05)
[2020-02-25] MEDS: INSULIN GLARGINE 100 UNIT/ML SUBCUT SCH (21:06)
[2020-02-25] MEDS ORDERED: NOREPINEPHRINE 4 MG/4 ML VIAL IV ONE (21:11)
[2020-02-26] MEDS: PIPERACILLIN/TAZOBACTAM 3,375 MG in SODIUM CHLORIDE 0.9% 100 ML IV SCH ×2 (00:12→13:25)
[2020-02-26] MEDS: INSULIN LISPRO 100 UNIT/ML SUBCUT SCH ×4 (00:18→17:58)
[2020-02-26] MEDS: NOREPINEPHRINE 8 MG in SODIUM CHLORIDE 0.9% 242 ML IV PRN ×2 (01:10→13:09)
[2020-02-26] MEDS: MIDAZOLAM 100 MG in SODIUM CHLORIDE 0.9% 80 ML IV PRN ×3 (01:19→22:44)
[2020-02-26] MEDS: ROCURONIUM 500 MG in SODIUM CHLORIDE 0.9% 500 ML IV PRN (02:14)
[2020-02-26] MEDS ORDERED: NOREPINEPHRINE 4 MG/4 ML VIAL IV ONE (02:20)
[2020-02-26] MEDS: HEPARIN DRIP 25,000 UNITS/500 ML PREMIX IV SCH ×2 (03:02→20:28)
[2020-02-26 03:56] LABS: ABG Base Excess -6.3 MMOL/L (-2.5-2.5); ABG HCO3 19.1 MMOL/L (20-26); ABG Oxygen Saturation 89.6 % (95-100); ABG PO2 68.6 MM HG (80-95); ABG TCO2 23.9 MMOL/L (23-27); Allen Test Positive; Pt O2 Delivery Device Ventilator
[2020-02-26 03:59] LABS: ABG PH 7.106 (7.35-7.45)
[2020-02-26 05:14] LABS: Basophils # 0.1 10*3/uL (0.0-0.2); Basophils % 0.3 % (0.0-0.8); Eosinophils % 0.1 % (0.00-10.9); Hematocrit 31.1 VOL% (35.7-47.0); Hemoglobin 9.4 GM/DL (12.0-16.0); Immature Granulocytes % 4.6 %; Immature Granulocytes Absolute 1.72 #; Lymphocytes # 1.1 10*3/uL (1.4-4.0); Mean Corpuscular HGB Conc 30.2 GM/DL (32-36); Mean Corpuscular Volume 89.1 FL (87-102); Mean Platelet Volume 10.3 FL (9.6-12.0); Monocytes % 2.7 % (1.7-12.7); NRBC # 0.22 10*3/uL; Neutrophils % 89.3 % (38.7-73.9); Platelet Count 182 T/CUMM (130-400); Red Blood Count 3.49 MC/CUMM (3.8-5.5); Red Cell Distribution Width 13.9 % (9.3-17.3)
[2020-02-26 05:39] LABS: Calcium 7.7 MG/DL (8.5-10.1); Osmolality,Calculated 280.8 MOS/KG (273-304)
[2020-02-26 05:41] LABS: Band Neutrophils 2 % (0-10); Hypochromasia 1+; Lymphocytes 3 % (20-55); Microcytosis 1+; Platelet Estimate Adequate; Segmented Neutrophils 91 % (50-85); Total Cells Counted 100
[2020-02-26 07:46] LABS: ABG Base Excess -6.3 MMOL/L (-2.5-2.5); ABG HCO3 19.2 MMOL/L (20-26); ABG Oxygen Saturation 91.8 % (95-100); ABG PCO2 63.7 MM HG (35-48); ABG PO2 70.9 MM HG (80-95); ABG TCO2 21.9 MMOL/L (23-27); Allen Test Positive; Pt O2 Delivery Device Ventilator
[2020-02-26 07:48] LABS: ABG PH 7.168 (7.35-7.45)
[2020-02-26] MEDS ORDERED: SODIUM BICARBONATE 50 MEQ/50 ML VIAL IV ONE ×2 (08:35)
[2020-02-26] MEDS: SODIUM BICARB INJ 100 MEQ in DEXTROSE 5% 1,000 ML IV SCH (09:35)
[2020-02-26] MEDS: DOCUSATE SODIUM 100 MG/10 ML UDCUP PO SCH ×2 (09:36→20:28)
[2020-02-26] MEDS: CALCIUM CARBONATE CHEW 500 MG TABLET PO SCH ×2 (09:36→20:28)
[2020-02-26] MEDS: MONTELUKAST 10 MG TABLET PO SCH (09:36)
[2020-02-26] MEDS: MULTIVITAMIN LIQUID (CENTRUM) 60 ML BOTTLE PO SCH (09:36)
[2020-02-26] MEDS: OLOPATADINE 0.1% OPH SOLN 5 ML BOTTLE BOTH EYES SCH ×2 (09:36→20:28)
[2020-02-26] MEDS: PANTOPRAZOLE 40 MG VIAL IV SCH (09:36)
[2020-02-26] MEDS: SODIUM BICARB INJ 150 MEQ in DEXTROSE 5% 850 ML IV SCH (11:36)
[2020-02-26 12:37] LABS: ABG Base Excess -1.3 MMOL/L (-2.5-2.5); ABG HCO3 25.9 MMOL/L (20-26); ABG Oxygen Saturation 98.9 % (95-100); ABG PCO2 55.7 MM HG (35-48); ABG PH 7.285 (7.35-7.45); ABG PO2 293.2 MM HG (80-95); ABG TCO2 27.6 MMOL/L (23-27)
[2020-02-26] MEDS: AZITHROMYCIN INJ 500 MG in SODIUM CHLORIDE 0.9% 250 ML IV SCH (15:10)
[2020-02-26] MEDS: DEXAMETHASONE 4 MG/1 ML VIAL IV SCH (15:45)
[2020-02-26] MEDS: SIMVASTATIN 10 MG TABLET PO SCH (20:28)
[2020-02-26] MEDS: INSULIN GLARGINE 100 UNIT/ML SUBCUT SCH (20:28)
[2020-02-27] MEDS: INSULIN LISPRO 100 UNIT/ML SUBCUT SCH ×4 (00:40→17:30)
[2020-02-27] MEDS: SODIUM BICARB INJ 150 MEQ in DEXTROSE 5% 850 ML IV SCH ×2 (00:41→14:50)
[2020-02-27] MEDS: PIPERACILLIN/TAZOBACTAM 3,375 MG in SODIUM CHLORIDE 0.9% 100 ML IV SCH ×2 (01:55→13:14)
[2020-02-27] MEDS: HEPARIN DRIP 25,000 UNITS/500 ML PREMIX IV SCH ×2 (04:20→18:39)
[2020-02-27 05:05] LABS: Basophils % 0.2 % (0.0-0.8); Eosinophils % 0.1 % (0.00-10.9); Immature Granulocytes % 8.6 %; Lymphocytes # 0.6 10*3/uL (1.4-4.0); Lymphocytes % 2.4 % (21.3-54.2); Mean Corpuscular HGB Conc 30.8 GM/DL (32-36); Mean Corpuscular Volume 85.8 FL (87-102); Mean Platelet Volume 10.4 FL (9.6-12.0); Monocytes % 1.8 % (1.7-12.7); NRBC # 0.12 10*3/uL; Neutrophils % 86.9 % (38.7-73.9); Platelet Count 114 T/CUMM (130-400); Red Blood Count 3.03 MC/CUMM (3.8-5.5); Red Cell Distribution Width 13.9 % (9.3-17.3); White Blood Count 24.4 T/CUMM (4-12)
[2020-02-27 05:21] LABS: Calcium 7.5 MG/DL (8.5-10.1); Osmolality,Calculated 279.5 MOS/KG (273-304)
[2020-02-27 05:30] LABS: Band Neutrophils 2 % (0-10); Lymphocytes 1 % (20-55); Segmented Neutrophils 92 % (50-85); Total Cells Counted 100
[2020-02-27 05:31] LABS: Hypochromasia 1+; Microcytosis 1+
[2020-02-27 09:11] LABS: ABG Base Excess -0.7 MMOL/L (-2.5-2.5); ABG HCO3 23.9 MMOL/L (20-26); ABG Oxygen Saturation 97.5 % (95-100); ABG PCO2 58.8 MM HG (35-48); ABG TCO2 25.4 MMOL/L (23-27)
[2020-02-27] MEDS: OLOPATADINE 0.1% OPH SOLN 5 ML BOTTLE BOTH EYES SCH ×2 (09:28→20:15)
[2020-02-27] MEDS: MONTELUKAST 10 MG TABLET PO SCH (09:28)
[2020-02-27] MEDS: DOCUSATE SODIUM 100 MG/10 ML UDCUP PO SCH ×2 (09:28→20:15)
[2020-02-27] MEDS: PANTOPRAZOLE 40 MG VIAL IV SCH (09:28)
[2020-02-27] MEDS: MULTIVITAMIN LIQUID (CENTRUM) 60 ML BOTTLE PO SCH (09:28)
[2020-02-27] MEDS: CALCIUM CARBONATE CHEW 500 MG TABLET PO SCH ×2 (09:28→20:15)
[2020-02-27] MEDS: AZITHROMYCIN INJ 500 MG in SODIUM CHLORIDE 0.9% 250 ML IV SCH (14:42)
[2020-02-27] MEDS: DEXAMETHASONE 4 MG/1 ML VIAL IV SCH (15:50)
[2020-02-27] MEDS: ACETAMINOPHEN 325 MG TABLET PO PRN (16:05)
[2020-02-27] MEDS: SIMVASTATIN 10 MG TABLET PO SCH (20:15)
[2020-02-27] MEDS: INSULIN GLARGINE 100 UNIT/ML SUBCUT SCH (20:15)
[2020-02-28] MEDS: INSULIN LISPRO 100 UNIT/ML SUBCUT SCH ×5 (00:13→23:53)
[2020-02-28] MEDS: PIPERACILLIN/TAZOBACTAM 3,375 MG in SODIUM CHLORIDE 0.9% 100 ML IV SCH ×2 (00:30→13:49)
[2020-02-28 04:24] LABS: Basophils % 0.2 % (0.0-0.8); Eosinophils % 0.1 % (0.00-10.9); Hematocrit 24.1 VOL% (35.7-47.0); Hemoglobin 7.5 GM/DL (12.0-16.0); Immature Granulocytes % 10.5 %; Immature Granulocytes Absolute 2.11 #; Lymphocytes # 0.6 10*3/uL (1.4-4.0); Mean Corpuscular HGB Conc 31.1 GM/DL (32-36); Mean Corpuscular Volume 85.5 FL (87-102); Mean Platelet Volume 10.6 FL (9.6-12.0); Monocytes % 2.2 % (1.7-12.7); NRBC # 0.08 10*3/uL; Platelet Count 126 T/CUMM (130-400); Red Blood Count 2.82 MC/CUMM (3.8-5.5); Red Cell Distribution Width 14.3 % (9.3-17.3); White Blood Count 20.1 T/CUMM (4-12)
[2020-02-28 04:39] LABS: Calcium 7.8 MG/DL (8.5-10.1); Osmolality,Calculated 279.9 MOS/KG (273-304)
[2020-02-28 04:45] LABS: Allen Test Positive; Pt O2 Delivery Device Ventilator
[2020-02-28 04:51] LABS: Band Neutrophils 4 % (0-10); Lymphocytes 3 % (20-55); Segmented Neutrophils 90 % (50-85); Total Cells Counted 100
[2020-02-28 04:52] LABS: Hypochromasia 1+; Microcytosis 1+; Ovalocytes Slight; Platelet Estimate Adequate
[2020-02-28 04:54] LABS: ABG Base Excess 1.9 MMOL/L (-2.5-2.5); ABG HCO3 27.8 MMOL/L (20-26); ABG Oxygen Saturation 89.1 % (95-100); ABG PCO2 50.8 MM HG (35-48); ABG PH 7.356 (7.35-7.45); ABG PO2 59.5 MM HG (80-95); ABG TCO2 29.4 MMOL/L (23-27)
[2020-02-28] MEDS: SODIUM BICARB INJ 150 MEQ in DEXTROSE 5% 850 ML IV SCH (07:49)
[2020-02-28] MEDS: MONTELUKAST 10 MG TABLET PO SCH (08:36)
[2020-02-28] MEDS: CALCIUM CARBONATE CHEW 500 MG TABLET PO SCH ×2 (08:36→20:15)
[2020-02-28] MEDS: MULTIVITAMIN LIQUID (CENTRUM) 60 ML BOTTLE PO SCH (08:36)
[2020-02-28] MEDS: DOCUSATE SODIUM 100 MG/10 ML UDCUP PO SCH ×2 (08:36→20:15)
[2020-02-28] MEDS: PANTOPRAZOLE 40 MG VIAL IV SCH (08:36)
[2020-02-28] MEDS: OLOPATADINE 0.1% OPH SOLN 5 ML BOTTLE BOTH EYES SCH ×2 (08:37→20:15)
[2020-02-28] MEDS: SODIUM BICARB INJ 50 MEQ in SODIUM CHLORIDE 0.45% 1,000 ML IV SCH (10:34)
[2020-02-28] MEDS: HEPARIN INJ 25,000 UNIT in SODIUM CHLORIDE 0.9% 495 ML IV SCH (10:37)
[2020-02-28] MEDS: DEXAMETHASONE 4 MG/1 ML VIAL IV SCH (15:31)
[2020-02-28] MEDS: AZITHROMYCIN INJ 500 MG in SODIUM CHLORIDE 0.9% 250 ML IV SCH (15:31)
[2020-02-28] MEDS ORDERED: DEXMEDETOMIDINE 400 MCG in SODIUM CHLORIDE 0.9% 96 ML IV PRN (18:46)
[2020-02-28] MEDS: SIMVASTATIN 10 MG TABLET PO SCH (20:15)
[2020-02-28] MEDS: INSULIN GLARGINE 100 UNIT/ML SUBCUT SCH (20:15)
[2020-02-29] MEDS: PIPERACILLIN/TAZOBACTAM 3,375 MG in SODIUM CHLORIDE 0.9% 100 ML IV SCH ×2 (01:30→13:55)
[2020-02-29 03:59] LABS: Allen Test Positive; Pt O2 Delivery Device Ventilator
[2020-02-29 04:00] LABS: ABG Base Excess 2.7 MMOL/L (-2.5-2.5); ABG HCO3 26.9 MMOL/L (20-26); ABG Oxygen Saturation 99.4 % (95-100); ABG PCO2 47.2 MM HG (35-48); ABG PH 7.384 (7.35-7.45); ABG TCO2 26.4 MMOL/L (23-27)
[2020-02-29 05:08] LABS: Basophils % 0.1 % (0.0-0.8); Eosinophils % 0.2 % (0.00-10.9); Hematocrit 24.8 VOL% (35.7-47.0); Hemoglobin 7.6 GM/DL (12.0-16.0); Immature Granulocytes % 9.6 %; Immature Granulocytes Absolute 1.44 #; Lymphocytes # 0.7 10*3/uL (1.4-4.0); Lymphocytes % 4.7 % (21.3-54.2); Mean Corpuscular HGB Conc 30.6 GM/DL (32-36); Mean Corpuscular Volume 86.1 FL (87-102); Mean Platelet Volume 10.7 FL (9.6-12.0); Monocytes % 3.1 % (1.7-12.7); NRBC # 0.11 10*3/uL; Neutrophils % 82.3 % (38.7-73.9); Platelet Count 127 T/CUMM (130-400); Red Blood Count 2.88 MC/CUMM (3.8-5.5); Red Cell Distribution Width 14.4 % (9.3-17.3)
[2020-02-29 05:27] LABS: Osmolality,Calculated 285.2 MOS/KG (273-304)
[2020-02-29 06:23] LABS: Anisocytosis 1+; Band Neutrophils 2 % (0-10); Eosinophils 1 % (0-10); Hypochromasia 1+; Lymphocytes 8 % (20-55); Macrocytosis 1+; Metamyelocytes 3 %; Nucleated Red Blood Cells 3 (0-5); Platelet Estimate Decreased; Segmented Neutrophils 84 % (50-85); Total Cells Counted 100
[2020-02-29] MEDS: hydrALAZINE 20 MG/1 ML VIAL IV PRN ×2 (06:30→15:34)
[2020-02-29] MEDS: INSULIN LISPRO 100 UNIT/ML SUBCUT SCH ×4 (06:35→23:30)
[2020-02-29] MEDS: SODIUM BICARB INJ 50 MEQ in SODIUM CHLORIDE 0.45% 1,000 ML IV SCH ×2 (07:47→19:04)
[2020-02-29] MEDS: HEPARIN INJ 25,000 UNIT in SODIUM CHLORIDE 0.9% 495 ML IV SCH (08:19)
[2020-02-29] MEDS: CALCIUM CARBONATE CHEW 500 MG TABLET PO SCH ×2 (08:20→20:37)
[2020-02-29] MEDS: PANTOPRAZOLE 40 MG VIAL IV SCH (08:20)
[2020-02-29] MEDS: MULTIVITAMIN LIQUID (CENTRUM) 60 ML BOTTLE PO SCH (08:20)
[2020-02-29] MEDS: OLOPATADINE 0.1% OPH SOLN 5 ML BOTTLE BOTH EYES SCH ×2 (08:20→20:37)
[2020-02-29] MEDS: DOCUSATE SODIUM 100 MG/10 ML UDCUP PO SCH ×2 (08:20→20:37)
[2020-02-29] MEDS: MONTELUKAST 10 MG TABLET PO SCH (08:20)
[2020-02-29] MEDS ORDERED: VANCOMYCIN INJ 1,000 MG in SODIUM CHLORIDE 0.9% 250 ML IV PRN (13:14)
[2020-02-29] MEDS ORDERED: VANCOMYCIN INJ 2,000 MG in SODIUM CHLORIDE 0.9% 500 ML IV ONE (15:00)
[2020-02-29] MEDS: AZITHROMYCIN INJ 500 MG in SODIUM CHLORIDE 0.9% 250 ML IV SCH (15:47)
[2020-02-29] MEDS: INSULIN GLARGINE 100 UNIT/ML SUBCUT SCH (20:37)
[2020-02-29] MEDS: SIMVASTATIN 10 MG TABLET PO SCH (20:37)
[2020-03-01] MEDS: PIPERACILLIN/TAZOBACTAM 3,375 MG in SODIUM CHLORIDE 0.9% 100 ML IV SCH ×2 (01:29→12:06)
[2020-03-01] MEDS: HEPARIN INJ 25,000 UNIT in SODIUM CHLORIDE 0.9% 495 ML IV SCH ×2 (01:31→10:07)
[2020-03-01 03:58] LABS: Allen Test Positive; Pt O2 Delivery Device Ventilator
[2020-03-01 04:02] LABS: ABG Base Excess 1.3 MMOL/L (-2.5-2.5); ABG HCO3 27.1 MMOL/L (20-26); ABG Oxygen Saturation 98.8 % (95-100); ABG PCO2 49.7 MM HG (35-48); ABG PH 7.355 (7.35-7.45); ABG PO2 227.8 MM HG (80-95); ABG TCO2 28.7 MMOL/L (23-27)
[2020-03-01] MEDS: hydrALAZINE 20 MG/1 ML VIAL IV PRN (04:20)
[2020-03-01 04:23] LABS: Basophils % 0.1 % (0.0-0.8); Eosinophils # 0.1 10*3/uL (0.0-0.87); Eosinophils % 0.4 % (0.00-10.9); Hematocrit 23.7 VOL% (35.7-47.0); Hemoglobin 7.3 GM/DL (12.0-16.0); Immature Granulocytes % 3.8 %; Immature Granulocytes Absolute 0.82 #; Lymphocytes # 0.7 10*3/uL (1.4-4.0); Mean Corpuscular HGB Conc 30.8 GM/DL (32-36); Mean Corpuscular Volume 85.6 FL (87-102); Mean Platelet Volume 10.8 FL (9.6-12.0); Monocytes % 2.2 % (1.7-12.7); Neutrophils % 90.5 % (38.7-73.9); Platelet Count 152 T/CUMM (130-400); Red Blood Count 2.77 MC/CUMM (3.8-5.5); Red Cell Distribution Width 14.6 % (9.3-17.3); White Blood Count 21.7 T/CUMM (4-12)
[2020-03-01 04:31] LABS: Calcium 8.2 MG/DL (8.5-10.1); Osmolality,Calculated 286.2 MOS/KG (273-304)
[2020-03-01 04:55] LABS: Band Neutrophils 4 % (0-10); Eosinophils 3 % (0-10); Hypochromasia Slight; Lymphocytes 3 % (20-55); Nucleated Red Blood Cells 1 (0-5); Platelet Estimate Adequate; Segmented Neutrophils 90 % (50-85); Total Cells Counted 100
[2020-03-01 04:56] LABS: Microcytosis Slight
[2020-03-01] MEDS: SODIUM BICARB INJ 50 MEQ in SODIUM CHLORIDE 0.45% 1,000 ML IV SCH (04:57)
[2020-03-01] MEDS: INSULIN LISPRO 100 UNIT/ML SUBCUT SCH ×3 (05:01→17:07)
[2020-03-01] MEDS: HEPARIN 5,000 UNIT/1 ML VIAL IV PRN (06:48)
[2020-03-01] MEDS: CALCIUM CARBONATE CHEW 500 MG TABLET PO SCH ×2 (08:02→20:30)
[2020-03-01] MEDS: DOCUSATE SODIUM 100 MG/10 ML UDCUP PO SCH ×2 (08:02→20:30)
[2020-03-01] MEDS: PANTOPRAZOLE 40 MG VIAL IV SCH (08:02)
[2020-03-01] MEDS: ERGOCALCIFEROL 50,000 UNIT CAPSULE PO SCH (08:02)
[2020-03-01] MEDS: MULTIVITAMIN LIQUID (CENTRUM) 60 ML BOTTLE PO SCH (08:02)
[2020-03-01] MEDS: MONTELUKAST 10 MG TABLET PO SCH (08:02)
[2020-03-01] MEDS: OLOPATADINE 0.1% OPH SOLN 5 ML BOTTLE BOTH EYES SCH ×2 (08:03→20:30)
[2020-03-01] MEDS: AZITHROMYCIN INJ 500 MG in SODIUM CHLORIDE 0.9% 250 ML IV SCH (14:17)
[2020-03-01] MEDS ORDERED: HEPARIN 5,000 UNIT/1 ML VIAL IV ONE (17:33)
[2020-03-01] MEDS: SIMVASTATIN 10 MG TABLET PO SCH (20:30)
[2020-03-01] MEDS: INSULIN GLARGINE 100 UNIT/ML SUBCUT SCH (20:30)
[2020-03-02] MEDS: INSULIN LISPRO 100 UNIT/ML SUBCUT SCH ×5 (00:40→23:15)
[2020-03-02] MEDS: PIPERACILLIN/TAZOBACTAM 3,375 MG in SODIUM CHLORIDE 0.9% 100 ML IV SCH ×2 (01:13→13:04)
[2020-03-02 03:55] LABS: ABG Base Excess 0.9 MMOL/L (-2.5-2.5); ABG HCO3 25.2 MMOL/L (20-26); ABG Oxygen Saturation 99.1 % (95-100); ABG PCO2 42.7 MM HG (35-48); ABG TCO2 24.6 MMOL/L (23-27); Allen Test Positive; Pt O2 Delivery Device Ventilator
[2020-03-02] MEDS: HEPARIN INJ 25,000 UNIT in SODIUM CHLORIDE 0.9% 495 ML IV SCH ×2 (06:13→08:00)
[2020-03-02 06:48] LABS: Basophils % 0.1 % (0.0-0.8); Eosinophils # 0.1 10*3/uL (0.0-0.87); Eosinophils % 0.4 % (0.00-10.9); Hematocrit 21.3 VOL% (35.7-47.0); Hemoglobin 6.5 GM/DL (12.0-16.0); Immature Granulocytes % 2.3 %; Immature Granulocytes Absolute 0.43 #; Lymphocytes # 0.5 10*3/uL (1.4-4.0); Lymphocytes % 2.5 % (21.3-54.2); Mean Corpuscular HGB Conc 30.5 GM/DL (32-36); Mean Corpuscular Volume 86.6 FL (87-102); Mean Platelet Volume 11.2 FL (9.6-12.0); NRBC # 0.05 10*3/uL; Neutrophils % 92.7 % (38.7-73.9); Platelet Count 135 T/CUMM (130-400); Red Blood Count 2.46 MC/CUMM (3.8-5.5); White Blood Count 18.6 T/CUMM (4-12)
[2020-03-02 06:52] LABS: Calcium 8.6 MG/DL (8.5-10.1); Prealbumin 7.2 MG/DL (20-40)
[2020-03-02] MEDS: HEPARIN 5,000 UNIT/1 ML VIAL IV PRN ×3 (06:56→21:45)
[2020-03-02] MEDS: MULTIVITAMIN LIQUID (CENTRUM) 60 ML BOTTLE PO SCH (08:02)
[2020-03-02] MEDS: CALCIUM CARBONATE CHEW 500 MG TABLET PO SCH ×2 (08:02→20:56)
[2020-03-02] MEDS: DOCUSATE SODIUM 100 MG/10 ML UDCUP PO SCH ×2 (08:02→20:56)
[2020-03-02] MEDS: MONTELUKAST 10 MG TABLET PO SCH (08:02)
[2020-03-02] MEDS: OLOPATADINE 0.1% OPH SOLN 5 ML BOTTLE BOTH EYES SCH ×2 (08:03→20:56)
[2020-03-02] MEDS: PANTOPRAZOLE 40 MG VIAL IV SCH (08:03)
[2020-03-02 08:26] LABS: Band Neutrophils 2 % (0-10); Lymphocytes 3 % (20-55); Platelet Estimate Decreased; Segmented Neutrophils 93 % (50-85); Total Cells Counted 100
[2020-03-02 08:31] LABS: Ferritin 305.5 ng/ml (8-252)
[2020-03-02] MEDS ORDERED: SODIUM CHLORIDE 0.9% 1,000 ML IV PRN (09:36)
[2020-03-02] MEDS ORDERED: VANCOMYCIN INJ 1,000 MG in SODIUM CHLORIDE 0.9% 250 ML IV ONE (14:00)
[2020-03-02] MEDS: AZITHROMYCIN INJ 500 MG in SODIUM CHLORIDE 0.9% 250 ML IV SCH (15:00)
[2020-03-02] MEDS: INSULIN GLARGINE 100 UNIT/ML SUBCUT SCH (20:56)
[2020-03-02] MEDS: SIMVASTATIN 10 MG TABLET PO SCH (20:56)
[2020-03-03] MEDS: PIPERACILLIN/TAZOBACTAM 3,375 MG in SODIUM CHLORIDE 0.9% 100 ML IV SCH ×2 (00:19→13:30)
[2020-03-03 04:59] LABS: ABG Base Excess 0.9 MMOL/L (-2.5-2.5); ABG HCO3 24.8 MMOL/L (20-26); ABG Oxygen Saturation 96.4 % (95-100); ABG PCO2 36.7 MM HG (35-48); ABG PH 7.448 (7.35-7.45); ABG PO2 86.9 MM HG (80-95); ABG TCO2 25.9 MMOL/L (23-27)
[2020-03-03 05:00] LABS: Allen Test Positive; Pt O2 Delivery Device Ventilator
[2020-03-03 05:13] LABS: Basophils % 0.1 % (0.0-0.8); Eosinophils # 0.1 10*3/uL (0.0-0.87); Eosinophils % 0.6 % (0.00-10.9); Hemoglobin 9.2 GM/DL (12.0-16.0); Immature Granulocytes % 2.2 %; Lymphocytes # 0.5 10*3/uL (1.4-4.0); Lymphocytes % 3.3 % (21.3-54.2); Mean Corpuscular HGB Conc 31.7 GM/DL (32-36); Mean Platelet Volume 11.2 FL (9.6-12.0); NRBC # 0.04 10*3/uL; Neutrophils % 90.8 % (38.7-73.9); Platelet Count 124 T/CUMM (130-400); Red Blood Count 3.41 MC/CUMM (3.8-5.5); Red Cell Distribution Width 15.4 % (9.3-17.3); White Blood Count 13.8 T/CUMM (4-12)
[2020-03-03 05:33] LABS: Albumin 1.1 G/DL (3.4-5.0); Bilirubin,Total 0.6 MG/DL (0.2-1.0); Calcium 8.4 MG/DL (8.5-10.1); Osmolality,Calculated 290.1 MOS/KG (273-304); Total Protein 5.6 G/DL (6.4-8.3)
[2020-03-03] MEDS: HEPARIN INJ 25,000 UNIT in SODIUM CHLORIDE 0.9% 495 ML IV SCH (05:39)
[2020-03-03] MEDS: HEPARIN 5,000 UNIT/1 ML VIAL IV PRN ×2 (05:41→13:57)
[2020-03-03 05:50] LABS: Band Neutrophils 1 % (0-10); Eosinophils 1 % (0-10); Lymphocytes 4 % (20-55); Nucleated Red Blood Cells 1 (0-5); Segmented Neutrophils 93 % (50-85); Total Cells Counted 100
[2020-03-03 05:51] LABS: Hypochromasia 1+; Microcytosis 1+; Ovalocytes Slight; Platelet Estimate Adequate; Polychromasia Slight
[2020-03-03] MEDS: INSULIN LISPRO 100 UNIT/ML SUBCUT SCH ×3 (06:07→17:54)
[2020-03-03] MEDS: CALCIUM CARBONATE CHEW 500 MG TABLET PO SCH ×2 (08:00→21:35)
[2020-03-03] MEDS: MULTIVITAMIN LIQUID (CENTRUM) 60 ML BOTTLE PO SCH (08:00)
[2020-03-03] MEDS: DOCUSATE SODIUM 100 MG/10 ML UDCUP PO SCH ×2 (08:00→20:25)
[2020-03-03] MEDS: MONTELUKAST 10 MG TABLET PO SCH (08:00)
[2020-03-03] MEDS: OLOPATADINE 0.1% OPH SOLN 5 ML BOTTLE BOTH EYES SCH ×2 (08:01→21:35)
[2020-03-03] MEDS: PANTOPRAZOLE 40 MG VIAL IV SCH (08:01)
[2020-03-03] MEDS: AZITHROMYCIN INJ 500 MG in SODIUM CHLORIDE 0.9% 250 ML IV SCH (14:49)
[2020-03-03] MEDS: INSULIN GLARGINE 100 UNIT/ML SUBCUT SCH (22:19)
[2020-03-03] MEDS: SIMVASTATIN 10 MG TABLET PO SCH (22:23)
[2020-03-04] MEDS: HEPARIN INJ 25,000 UNIT in SODIUM CHLORIDE 0.9% 495 ML IV SCH ×3 (00:53→19:51)
[2020-03-04] MEDS: INSULIN LISPRO 100 UNIT/ML SUBCUT SCH ×4 (03:02→17:25)
[2020-03-04 04:33] LABS: ABG HCO3 23.4 MMOL/L (20-26); ABG Oxygen Saturation 90.6 % (95-100); ABG PCO2 34.4 MM HG (35-48); ABG PO2 58.9 MM HG (80-95); Allen Test Positive; Pt O2 Delivery Device Ventilator
[2020-03-04 05:14] LABS: Basophils % 0.2 % (0.0-0.8); Eosinophils # 0.1 10*3/uL (0.0-0.87); Eosinophils % 0.6 % (0.00-10.9); Hematocrit 28.6 VOL% (35.7-47.0); Hemoglobin 9.2 GM/DL (12.0-16.0); Immature Granulocytes % 2.1 %; Immature Granulocytes Absolute 0.24 #; Lymphocytes # 0.5 10*3/uL (1.4-4.0); Lymphocytes % 4.4 % (21.3-54.2); Mean Corpuscular HGB Conc 32.2 GM/DL (32-36); Mean Corpuscular Volume 86.4 FL (87-102); Mean Platelet Volume 10.6 FL (9.6-12.0); Monocytes % 3.2 % (1.7-12.7); NRBC # 0.03 10*3/uL; Neutrophils % 89.5 % (38.7-73.9); Platelet Count 150 T/CUMM (130-400); Red Blood Count 3.31 MC/CUMM (3.8-5.5); Red Cell Distribution Width 15.5 % (9.3-17.3); White Blood Count 11.3 T/CUMM (4-12)
[2020-03-04 05:39] LABS: Band Neutrophils 1 % (0-10); Calcium 8.7 MG/DL (8.5-10.1); Eosinophils 1 % (0-10); Hypochromasia 1+; Lymphocytes 5 % (20-55); Osmolality,Calculated 299.8 MOS/KG (273-304); Promyelocytes 1 %; Segmented Neutrophils 91 % (50-85); Total Cells Counted 100
[2020-03-04 05:40] LABS: Microcytosis 1+; Polychromasia Slight
[2020-03-04] MEDS: MULTIVITAMIN LIQUID (CENTRUM) 60 ML BOTTLE PO SCH (09:21)
[2020-03-04] MEDS: PANTOPRAZOLE 40 MG VIAL IV SCH (09:22)
[2020-03-04] MEDS: DOCUSATE SODIUM 100 MG/10 ML UDCUP PO SCH ×2 (09:24→21:50)
[2020-03-04] MEDS: CALCIUM CARBONATE CHEW 500 MG TABLET PO SCH ×2 (09:24→20:18)
[2020-03-04] MEDS: MONTELUKAST 10 MG TABLET PO SCH (09:25)
[2020-03-04] MEDS: OLOPATADINE 0.1% OPH SOLN 5 ML BOTTLE BOTH EYES SCH ×2 (09:25→21:50)
[2020-03-04] MEDS ORDERED: HEPARIN 5,000 UNIT/1 ML VIAL IV ONE (11:02)
[2020-03-04] MEDS ORDERED: VANCOMYCIN INJ 1,000 MG in SODIUM CHLORIDE 0.9% 250 ML IV ONE (14:30)
[2020-03-04] MEDS: ACETAMINOPHEN 325 MG TABLET PO PRN (17:30)
[2020-03-04] MEDS: INSULIN GLARGINE 100 UNIT/ML SUBCUT SCH (20:15)
[2020-03-04] MEDS: SIMVASTATIN 10 MG TABLET PO SCH (20:16)
[2020-03-04] MEDS: HEPARIN 5,000 UNIT/1 ML VIAL IV PRN (22:59)
[2020-03-05] MEDS: INSULIN LISPRO 100 UNIT/ML SUBCUT SCH ×4 (00:11→17:32)
[2020-03-05 03:43] LABS: ABG Base Excess 0.7 MMOL/L (-2.5-2.5); ABG HCO3 25.1 MMOL/L (20-26); ABG Oxygen Saturation 99.5 % (95-100); ABG PCO2 36.7 MM HG (35-48); ABG PH 7.437 (7.35-7.45); ABG TCO2 22.9 MMOL/L (23-27); Allen Test Positive; Pt O2 Delivery Device Ventilator
[2020-03-05 04:58] LABS: Basophils % 0.1 % (0.0-0.8); Eosinophils # 0.1 10*3/uL (0.0-0.87); Eosinophils % 0.7 % (0.00-10.9); Hematocrit 25.4 VOL% (35.7-47.0); Hemoglobin 7.9 GM/DL (12.0-16.0); Immature Granulocytes % 1.7 %; Immature Granulocytes Absolute 0.14 #; Lymphocytes # 0.5 10*3/uL (1.4-4.0); Lymphocytes % 5.7 % (21.3-54.2); Mean Corpuscular HGB Conc 31.1 GM/DL (32-36); Mean Platelet Volume 10.6 FL (9.6-12.0); Monocytes % 5.2 % (1.7-12.7); Neutrophils % 86.6 % (38.7-73.9); Platelet Count 158 T/CUMM (130-400); Red Blood Count 2.92 MC/CUMM (3.8-5.5); Red Cell Distribution Width 15.6 % (9.3-17.3); White Blood Count 8.3 T/CUMM (4-12)
[2020-03-05 05:16] LABS: Calcium 8.4 MG/DL (8.5-10.1); Osmolality,Calculated 294.7 MOS/KG (273-304)
[2020-03-05] MEDS ORDERED: VANCOMYCIN INJ 500 MG in SODIUM CHLORIDE 0.9% 100 ML IV PRN (08:30)
[2020-03-05] MEDS: HEPARIN IV SCH (08:55)
[2020-03-05] MEDS: SODIUM CHLORIDE 0.45% IV SCH (08:55)
[2020-03-05] MEDS: CALCIUM CARBONATE CHEW 500 MG TABLET PO SCH ×2 (09:38→20:45)
[2020-03-05] MEDS: OLOPATADINE 0.1% OPH SOLN 5 ML BOTTLE BOTH EYES SCH ×2 (09:38→20:45)
[2020-03-05] MEDS: DOCUSATE SODIUM 100 MG/10 ML UDCUP PO SCH ×2 (09:38→20:30)
[2020-03-05] MEDS: MULTIVITAMIN LIQUID (CENTRUM) 60 ML BOTTLE PO SCH (09:38)
[2020-03-05] MEDS: PANTOPRAZOLE 40 MG VIAL IV SCH (09:38)
[2020-03-05] MEDS: MONTELUKAST 10 MG TABLET PO SCH (09:38)
[2020-03-05] MEDS: hydrALAZINE 20 MG/1 ML VIAL IV PRN (14:30)
[2020-03-05] MEDS: amLODIPine 10 MG TABLET PER TUBE SCH (16:15)
[2020-03-05] MEDS: INSULIN GLARGINE 100 UNIT/ML SUBCUT SCH (20:45)
[2020-03-06] MEDS: HEPARIN IV SCH ×2 (00:35→16:51)
[2020-03-06] MEDS: SODIUM CHLORIDE 0.45% IV SCH ×2 (00:35→16:51)
[2020-03-06] MEDS: INSULIN LISPRO 100 UNIT/ML SUBCUT SCH ×4 (00:38→18:26)
[2020-03-06 03:19] LABS: ABG Base Excess -2.1 MMOL/L (-2.5-2.5); ABG HCO3 22.7 MMOL/L (20-26); ABG Oxygen Saturation 99.4 % (95-100); ABG PCO2 39.1 MM HG (35-48); ABG PH 7.374 (7.35-7.45); ABG TCO2 21.2 MMOL/L (23-27)
[2020-03-06 05:14] LABS: Basophils % 0.2 % (0.0-0.8); Eosinophils # 0.1 10*3/uL (0.0-0.87); Eosinophils % 1.7 % (0.00-10.9); Hematocrit 25.4 VOL% (35.7-47.0); Hemoglobin 7.8 GM/DL (12.0-16.0); Immature Granulocytes % 1.2 %; Lymphocytes # 0.4 10*3/uL (1.4-4.0); Lymphocytes % 5.2 % (21.3-54.2); Mean Corpuscular HGB Conc 30.7 GM/DL (32-36); Mean Corpuscular Volume 90.7 FL (87-102); Mean Platelet Volume 10.5 FL (9.6-12.0); Neutrophils % 87.7 % (38.7-73.9); Platelet Count 163 T/CUMM (130-400); Red Cell Distribution Width 15.3 % (9.3-17.3); White Blood Count 8.2 T/CUMM (4-12)
[2020-03-06 05:38] LABS: Calcium 8.7 MG/DL (8.5-10.1); Osmolality,Calculated 297.8 MOS/KG (273-304)
[2020-03-06 05:57] LABS: Ferritin 302.8 ng/ml (8-252)
[2020-03-06 07:36] LABS: Albumin 1.2 G/DL (3.4-5.0); Bilirubin,Total 0.9 MG/DL (0.2-1.0); Calcium 8.4 MG/DL (8.5-10.1); Osmolality,Calculated 299.7 MOS/KG (273-304); Total Protein 4.7 G/DL (6.4-8.3)
[2020-03-06] MEDS: DOCUSATE SODIUM 100 MG/10 ML UDCUP PO SCH ×2 (08:20→21:30)
[2020-03-06] MEDS: PANTOPRAZOLE 40 MG VIAL IV SCH (08:20)
[2020-03-06] MEDS: CALCIUM CARBONATE CHEW 500 MG TABLET PO SCH ×2 (08:20→21:30)
[2020-03-06] MEDS: MONTELUKAST 10 MG TABLET PO SCH (08:20)
[2020-03-06] MEDS: MULTIVITAMIN LIQUID (CENTRUM) 60 ML BOTTLE PO SCH (08:21)
[2020-03-06] MEDS: OLOPATADINE 0.1% OPH SOLN 5 ML BOTTLE BOTH EYES SCH ×2 (08:22→21:30)
[2020-03-06] MEDS: amLODIPine 10 MG TABLET PER TUBE SCH (08:24)
[2020-03-06] MEDS: CISATRACURIUM 200 MG in SODIUM CHLORIDE 0.9% 180 ML IV PRN ×4 (12:08→23:56)
[2020-03-06] MEDS: hydrALAZINE 20 MG/1 ML VIAL IV PRN (14:50)
[2020-03-06] MEDS: INSULIN GLARGINE 100 UNIT/ML SUBCUT SCH (23:01)
[2020-03-07] MEDS: INSULIN LISPRO 100 UNIT/ML SUBCUT SCH ×4 (00:45→17:26)
[2020-03-07] MEDS: CISATRACURIUM 200 MG in SODIUM CHLORIDE 0.9% 180 ML IV PRN ×2 (04:46→13:03)
[2020-03-07 04:57] LABS: ABG Base Excess -0.3 MMOL/L (-2.5-2.5); ABG HCO3 23.5 MMOL/L (20-26); ABG Oxygen Saturation 96.7 % (95-100); ABG PCO2 34.9 MM HG (35-48); ABG PH 7.446 (7.35-7.45); ABG TCO2 24.6 MMOL/L (23-27); Allen Test Positive; Pt O2 Delivery Device Ventilator
[2020-03-07 05:12] LABS: Basophils % 0.1 % (0.0-0.8); Eosinophils # 0.1 10*3/uL (0.0-0.87); Eosinophils % 1.2 % (0.00-10.9); Hematocrit 25.5 VOL% (35.7-47.0); Hemoglobin 7.8 GM/DL (12.0-16.0); Immature Granulocytes % 2.3 %; Immature Granulocytes Absolute 0.21 #; Lymphocytes # 0.4 10*3/uL (1.4-4.0); Lymphocytes % 4.1 % (21.3-54.2); Mean Corpuscular HGB Conc 30.6 GM/DL (32-36); Mean Corpuscular Volume 88.9 FL (87-102); Mean Platelet Volume 10.9 FL (9.6-12.0); Monocytes % 3.4 % (1.7-12.7); Neutrophils % 88.9 % (38.7-73.9); Platelet Count 170 T/CUMM (130-400); Red Blood Count 2.87 MC/CUMM (3.8-5.5); Red Cell Distribution Width 15.6 % (9.3-17.3); White Blood Count 9.2 T/CUMM (4-12)
[2020-03-07 05:23] LABS: Calcium 9.1 MG/DL (8.5-10.1); Osmolality,Calculated 285.1 MOS/KG (273-304)
[2020-03-07 07:20] LABS: Anisocytosis 1+; Band Neutrophils 4 % (0-10); Eosinophils 1 % (0-10); Lymphocytes 6 % (20-55); Macrocytosis 1+; Platelet Estimate Normal; Polychromasia 2+; Segmented Neutrophils 86 % (50-85); Total Cells Counted 100
[2020-03-07] MEDS: PANTOPRAZOLE 40 MG VIAL IV SCH (08:12)
[2020-03-07] MEDS: CALCIUM CARBONATE CHEW 500 MG TABLET PO SCH ×2 (08:12→21:25)
[2020-03-07] MEDS: amLODIPine 10 MG TABLET PER TUBE SCH (08:12)
[2020-03-07] MEDS: DOCUSATE SODIUM 100 MG/10 ML UDCUP PO SCH ×2 (08:12→21:25)
[2020-03-07] MEDS: MONTELUKAST 10 MG TABLET PO SCH (08:12)
[2020-03-07] MEDS: OLOPATADINE 0.1% OPH SOLN 5 ML BOTTLE BOTH EYES SCH ×2 (08:12→21:25)
[2020-03-07] MEDS: MULTIVITAMIN LIQUID (CENTRUM) 60 ML BOTTLE PO SCH (08:12)
[2020-03-07] MEDS: HEPARIN IV SCH (08:18)
[2020-03-07] MEDS: SODIUM CHLORIDE 0.45% IV SCH (08:18)
[2020-03-07] MEDS ORDERED: NOREPINEPHRINE 4 MG/4 ML VIAL IV ONE (14:46)
[2020-03-07] MEDS: NOREPINEPHRINE 8 MG in SODIUM CHLORIDE 0.9% 242 ML IV PRN (14:53)
[2020-03-07] MEDS ORDERED: PHENYLEPHRINE DRIP 40 MG/250 ML PREMIX IV PRN (15:38)
[2020-03-07] MEDS ORDERED: PHENYLEPHRINE DRIP 40 MG/250 ML PREMIX IV ONE (15:39)
[2020-03-07 17:29] LABS: ABG Base Excess -8.7 MMOL/L (-2.5-2.5); ABG HCO3 17.4 MMOL/L (20-26); ABG Oxygen Saturation 94.6 % (95-100); ABG PCO2 57.1 MM HG (35-48); ABG PO2 86.7 MM HG (80-95); ABG TCO2 19.4 MMOL/L (23-27)
[2020-03-07 17:30] LABS: ABG PH 7.159 (7.35-7.45)
[2020-03-07] MEDS ORDERED: SODIUM BICARBONATE 50 MEQ/50 ML VIAL IV ONE (17:36)
[2020-03-07] MEDS ORDERED: SODIUM BICARB INJ 100 MEQ in DEXTROSE 5% 1,000 ML IV SCH (18:00)
[2020-03-07] MEDS: SODIUM BICARBONATE 50 MEQ/50 ML VIAL IV SCH (18:12)
[2020-03-07] MEDS: INSULIN GLARGINE 100 UNIT/ML SUBCUT SCH (21:25)
[2020-03-07] MEDS: NOREPINEPHRINE 16 MG in SODIUM CHLORIDE 0.9% 234 ML IV PRN (23:00)
[2020-03-08] MEDS: HEPARIN IV SCH ×3 (00:16→15:10)
[2020-03-08] MEDS: SODIUM CHLORIDE 0.45% IV SCH ×3 (00:16→15:10)
[2020-03-08] MEDS: INSULIN LISPRO 100 UNIT/ML SUBCUT SCH ×5 (01:44→23:49)
[2020-03-08] MEDS: SODIUM BICARBONATE 50 MEQ/50 ML VIAL IV SCH ×5 (01:45→23:48)
[2020-03-08 05:06] LABS: ABG Base Excess -4.5 MMOL/L (-2.5-2.5); ABG HCO3 22.2 MMOL/L (20-26); ABG Oxygen Saturation 99.1 % (95-100); ABG PCO2 48.8 MM HG (35-48); ABG PH 7.276 (7.35-7.45); ABG PO2 252.7 MM HG (80-95); ABG TCO2 23.7 MMOL/L (23-27)
[2020-03-08 05:27] LABS: Basophils # 0.1 10*3/uL (0.0-0.2); Basophils % 0.3 % (0.0-0.8); Eosinophils % 0.1 % (0.00-10.9); Hematocrit 25.9 VOL% (35.7-47.0); Hemoglobin 7.8 GM/DL (12.0-16.0); Immature Granulocytes % 3.6 %; Immature Granulocytes Absolute 0.79 #; Lymphocytes # 0.8 10*3/uL (1.4-4.0); Lymphocytes % 3.5 % (21.3-54.2); Mean Corpuscular HGB Conc 30.1 GM/DL (32-36); Mean Corpuscular Volume 91.5 FL (87-102); Mean Platelet Volume 10.9 FL (9.6-12.0); Monocytes % 3.9 % (1.7-12.7); NRBC # 0.08 10*3/uL; Neutrophils % 88.6 % (38.7-73.9); Platelet Count 202 T/CUMM (130-400); Red Blood Count 2.83 MC/CUMM (3.8-5.5); Red Cell Distribution Width 16.1 % (9.3-17.3); White Blood Count 21.7 T/CUMM (4-12)
[2020-03-08 05:34] LABS: Calcium 9.4 MG/DL (8.5-10.1); Osmolality,Calculated 288.1 MOS/KG (273-304)
[2020-03-08 06:03] LABS: Anisocytosis 1+; Band Neutrophils 45 % (0-10); Basophilic Stippling 1+; Lymphocytes 6 % (20-55); Metamyelocytes 5 %; Myelocytes 4 %; Nucleated Red Blood Cells 1 (0-5); Platelet Estimate Normal; Polychromasia Slight; Segmented Neutrophils 39 % (50-85); Total Cells Counted 100
[2020-03-08 06:04] LABS: Poikilocytosis Slight
[2020-03-08 07:08] LABS: Troponin I < 0.015 NG/ML (0.00-0.045)
[2020-03-08] MEDS: ERGOCALCIFEROL 50,000 UNIT CAPSULE PO SCH (08:24)
[2020-03-08] MEDS: PANTOPRAZOLE 40 MG VIAL IV SCH (08:24)
[2020-03-08] MEDS: CALCIUM CARBONATE CHEW 500 MG TABLET PO SCH ×2 (08:24→21:45)
[2020-03-08] MEDS: MULTIVITAMIN LIQUID (CENTRUM) 60 ML BOTTLE PO SCH (08:25)
[2020-03-08] MEDS: OLOPATADINE 0.1% OPH SOLN 5 ML BOTTLE BOTH EYES SCH ×2 (08:25→21:45)
[2020-03-08] MEDS: DOCUSATE SODIUM 100 MG/10 ML UDCUP PO SCH ×2 (08:25→21:45)
[2020-03-08] MEDS: MONTELUKAST 10 MG TABLET PO SCH (08:25)
[2020-03-08] MEDS: amLODIPine 10 MG TABLET PER TUBE SCH (08:25)
[2020-03-08] MEDS: methylPREDNISolone SOD SUC 40 MG/1 ML VIAL IV SCH ×2 (09:39→22:42)
[2020-03-08] MEDS: MICAFUNGIN 150 MG in SODIUM CHLORIDE 0.9% 100 ML IV SCH (09:40)
[2020-03-08] MEDS ORDERED: MICAFUNGIN 100 MG IV ONE (10:00)
[2020-03-08] MEDS ORDERED: MICAFUNGIN IV ONE (10:00)
[2020-03-08] MEDS: NOREPINEPHRINE 16 MG in SODIUM CHLORIDE 0.9% 234 ML IV PRN (17:42)
[2020-03-08] MEDS: INSULIN GLARGINE 100 UNIT/ML SUBCUT SCH (21:45)
[2020-03-09 05:03] LABS: Basophils % 0.2 % (0.0-0.8); Hematocrit 23.6 VOL% (35.7-47.0); Hemoglobin 7.1 GM/DL (12.0-16.0); Immature Granulocytes % 5.1 %; Immature Granulocytes Absolute 0.88 #; Lymphocytes # 0.7 10*3/uL (1.4-4.0); Lymphocytes % 3.9 % (21.3-54.2); Mean Corpuscular HGB Conc 30.1 GM/DL (32-36); Mean Corpuscular Volume 90.8 FL (87-102); Mean Platelet Volume 11.1 FL (9.6-12.0); Monocytes % 3.8 % (1.7-12.7); NRBC # 0.09 10*3/uL; Platelet Count 165 T/CUMM (130-400); White Blood Count 17.1 T/CUMM (4-12)
[2020-03-09 05:10] LABS: ABG HCO3 23.6 MMOL/L (20-26); ABG Oxygen Saturation 99.5 % (95-100); ABG PCO2 46.6 MM HG (35-48); ABG PH 7.336 (7.35-7.45); ABG TCO2 23.4 MMOL/L (23-27)
[2020-03-09 05:23] LABS: Calcium 8.8 MG/DL (8.5-10.1); Osmolality,Calculated 299.2 MOS/KG (273-304)
[2020-03-09 05:29] LABS: Band Neutrophils 5 % (0-10); Lymphocytes 4 % (20-55); Myelocytes 2 %; Platelet Estimate Adequate; Segmented Neutrophils 88 % (50-85); Total Cells Counted 100
[2020-03-09 05:30] LABS: Hypochromasia 2+; Microcytosis Slight
[2020-03-09] MEDS: SODIUM BICARBONATE 50 MEQ/50 ML VIAL IV SCH ×2 (06:04→13:33)
[2020-03-09] MEDS: INSULIN LISPRO 100 UNIT/ML SUBCUT SCH ×3 (06:04→17:28)
[2020-03-09] MEDS: SODIUM CHLORIDE 0.45% IV SCH ×3 (07:31→22:07)
[2020-03-09] MEDS: HEPARIN IV SCH ×3 (07:31→22:07)
[2020-03-09] MEDS: DOCUSATE SODIUM 100 MG/10 ML UDCUP PO SCH ×2 (08:30→22:05)
[2020-03-09] MEDS: MULTIVITAMIN LIQUID (CENTRUM) 60 ML BOTTLE PO SCH (08:30)
[2020-03-09] MEDS: PANTOPRAZOLE 40 MG VIAL IV SCH (08:30)
[2020-03-09] MEDS: MONTELUKAST 10 MG TABLET PO SCH (08:31)
[2020-03-09] MEDS: OLOPATADINE 0.1% OPH SOLN 5 ML BOTTLE BOTH EYES SCH ×2 (08:31→22:06)
[2020-03-09] MEDS: CALCIUM CARBONATE CHEW 500 MG TABLET PO SCH ×2 (08:31→22:06)
[2020-03-09] MEDS: methylPREDNISolone SOD SUC 40 MG/1 ML VIAL IV SCH ×2 (09:36→22:06)
[2020-03-09] MEDS: MICAFUNGIN 150 MG in SODIUM CHLORIDE 0.9% 100 ML IV SCH (11:08)
[2020-03-09] MEDS ORDERED: SODIUM CHLORIDE 0.9% 500 ML IV ONE (15:28)
[2020-03-09] MEDS: INSULIN GLARGINE 100 UNIT/ML SUBCUT SCH (22:05)
[2020-03-10] MEDS: INSULIN LISPRO 100 UNIT/ML SUBCUT SCH ×4 (01:35→17:34)
[2020-03-10 05:38] LABS: ABG Base Excess 1.2 MMOL/L (-2.5-2.5); ABG HCO3 25.5 MMOL/L (20-26); ABG Oxygen Saturation 99.4 % (95-100); ABG PH 7.416 (7.35-7.45); ABG TCO2 24.2 MMOL/L (23-27)
[2020-03-10 05:47] LABS: Basophils % 0.2 % (0.0-0.8); Eosinophils % 0.1 % (0.00-10.9); Hematocrit 22.9 VOL% (35.7-47.0); Immature Granulocytes % 5.2 %; Immature Granulocytes Absolute 0.92 #; Lymphocytes # 0.8 10*3/uL (1.4-4.0); Lymphocytes % 4.2 % (21.3-54.2); Mean Corpuscular HGB Conc 30.6 GM/DL (32-36); Mean Corpuscular Volume 89.5 FL (87-102); Mean Platelet Volume 10.8 FL (9.6-12.0); Monocytes % 4.5 % (1.7-12.7); NRBC # 0.11 10*3/uL; Neutrophils % 85.8 % (38.7-73.9); Platelet Count 117 T/CUMM (130-400); Red Blood Count 2.56 MC/CUMM (3.8-5.5); Red Cell Distribution Width 16.1 % (9.3-17.3); White Blood Count 17.8 T/CUMM (4-12)
[2020-03-10 06:00] LABS: Calcium 8.5 MG/DL (8.5-10.1); Osmolality,Calculated 292.1 MOS/KG (273-304)
[2020-03-10 06:16] LABS: Hypochromasia 2+; Lymphocytes 1 % (20-55); Microcytosis 1+; Platelet Estimate Decreased; Segmented Neutrophils 95 % (50-85); Total Cells Counted 100
[2020-03-10] MEDS: PANTOPRAZOLE 40 MG VIAL IV SCH (08:26)
[2020-03-10] MEDS: OLOPATADINE 0.1% OPH SOLN 5 ML BOTTLE BOTH EYES SCH ×2 (08:26→20:37)
[2020-03-10] MEDS: MONTELUKAST 10 MG TABLET PO SCH (08:26)
[2020-03-10] MEDS: DOCUSATE SODIUM 100 MG/10 ML UDCUP PO SCH ×2 (08:26→20:36)
[2020-03-10] MEDS: MULTIVITAMIN LIQUID (CENTRUM) 60 ML BOTTLE PO SCH (08:26)
[2020-03-10] MEDS: CALCIUM CARBONATE CHEW 500 MG TABLET PO SCH ×2 (08:27→20:35)
[2020-03-10] MEDS: SODIUM CHLORIDE 0.45% IV SCH ×2 (09:42→13:13)
[2020-03-10] MEDS: HEPARIN IV SCH ×2 (09:42→13:13)
[2020-03-10] MEDS: methylPREDNISolone SOD SUC 40 MG/1 ML VIAL IV SCH ×2 (09:42→21:16)
[2020-03-10] MEDS: MICAFUNGIN 50 MG, MICAFUNGIN 100 MG in SODIUM CHLORIDE 0.9% 100 ML IV SCH (10:56)
[2020-03-10] MEDS: hydrALAZINE 20 MG/1 ML VIAL IV PRN (13:31)
[2020-03-10] MEDS: INSULIN GLARGINE 100 UNIT/ML SUBCUT SCH (20:36)
[2020-03-11] MEDS: INSULIN LISPRO 100 UNIT/ML SUBCUT SCH ×4 (00:29→17:34)
[2020-03-11 05:01] LABS: ABG Base Excess -0.5 MMOL/L (-2.5-2.5); ABG PCO2 38.1 MM HG (35-48); ABG PH 7.407 (7.35-7.45); ABG PO2 85.5 MM HG (80-95); ABG TCO2 22.4 MMOL/L (23-27)
[2020-03-11] MEDS: HEPARIN IV SCH ×2 (05:17→20:58)
[2020-03-11] MEDS: SODIUM CHLORIDE 0.45% IV SCH ×2 (05:17→20:58)
[2020-03-11 05:21] LABS: Basophils % 0.2 % (0.0-0.8); Eosinophils # 0.1 10*3/uL (0.0-0.87); Eosinophils % 0.3 % (0.00-10.9); Hematocrit 23.3 VOL% (35.7-47.0); Hemoglobin 7.2 GM/DL (12.0-16.0); Immature Granulocytes Absolute 1.87 #; Lymphocytes % 5.7 % (21.3-54.2); Mean Corpuscular HGB Conc 30.9 GM/DL (32-36); Mean Corpuscular Volume 88.6 FL (87-102); Mean Platelet Volume 11.1 FL (9.6-12.0); NRBC # 0.13 10*3/uL; Neutrophils % 77.8 % (38.7-73.9); Platelet Count 154 T/CUMM (130-400); Red Blood Count 2.63 MC/CUMM (3.8-5.5); Red Cell Distribution Width 16.1 % (9.3-17.3); White Blood Count 16.9 T/CUMM (4-12)
[2020-03-11 05:51] LABS: Band Neutrophils 4 % (0-10); Lymphocytes 11 % (20-55); Myelocytes 1 %; Nucleated Red Blood Cells 1 (0-5); Platelet Estimate Adequate; Segmented Neutrophils 80 % (50-85); Total Cells Counted 100
[2020-03-11 05:52] LABS: Hypochromasia 2+; Microcytosis 1+
[2020-03-11 06:07] LABS: Calcium 8.1 MG/DL (8.5-10.1); Osmolality,Calculated 295.1 MOS/KG (273-304)
[2020-03-11] MEDS: OLOPATADINE 0.1% OPH SOLN 5 ML BOTTLE BOTH EYES SCH ×2 (09:27→20:15)
[2020-03-11] MEDS: DOCUSATE SODIUM 100 MG/10 ML UDCUP PO SCH ×2 (09:27→20:15)
[2020-03-11] MEDS: CALCIUM CARBONATE CHEW 500 MG TABLET PO SCH ×2 (09:27→20:15)
[2020-03-11] MEDS: MONTELUKAST 10 MG TABLET PO SCH (09:27)
[2020-03-11] MEDS: PANTOPRAZOLE 40 MG VIAL IV SCH (09:27)
[2020-03-11] MEDS: MULTIVITAMIN LIQUID (CENTRUM) 60 ML BOTTLE PO SCH (09:27)
[2020-03-11] MEDS: MICAFUNGIN 50 MG, MICAFUNGIN 100 MG in SODIUM CHLORIDE 0.9% 100 ML IV SCH (11:55)
[2020-03-11] MEDS: methylPREDNISolone SOD SUC 40 MG/1 ML VIAL IV SCH ×2 (12:33→21:01)
[2020-03-11] MEDS: INSULIN GLARGINE 100 UNIT/ML SUBCUT SCH (20:15)
[2020-03-12] MEDS: INSULIN LISPRO 100 UNIT/ML SUBCUT SCH ×4 (00:15→17:00)
[2020-03-12 04:49] LABS: Basophils # 0.1 10*3/uL (0.0-0.2); Basophils % 0.3 % (0.0-0.8); Eosinophils # 0.1 10*3/uL (0.0-0.87); Eosinophils % 0.4 % (0.00-10.9); Hematocrit 25.2 VOL% (35.7-47.0); Hemoglobin 7.6 GM/DL (12.0-16.0); Immature Granulocytes % 20.7 %; Immature Granulocytes Absolute 3.52 #; Lymphocytes # 0.8 10*3/uL (1.4-4.0); Lymphocytes % 4.8 % (21.3-54.2); Mean Corpuscular HGB Conc 30.2 GM/DL (32-36); Mean Platelet Volume 11.1 FL (9.6-12.0); Monocytes % 3.6 % (1.7-12.7); NRBC # 0.09 10*3/uL; Neutrophils % 70.2 % (38.7-73.9); Platelet Count 189 T/CUMM (130-400); Red Cell Distribution Width 16.2 % (9.3-17.3)
[2020-03-12 04:55] LABS: ABG Base Excess -0.9 MMOL/L (-2.5-2.5); ABG HCO3 23.8 MMOL/L (20-26); ABG PCO2 39.4 MM HG (35-48); ABG PH 7.399 (7.35-7.45)
[2020-03-12 05:12] LABS: Band Neutrophils 6 % (0-10); Eosinophils 1 % (0-10); Lymphocytes 4 % (20-55); Metamyelocytes 2 %; Myelocytes 2 %; Nucleated Red Blood Cells 1 (0-5); Promyelocytes 1 %; Segmented Neutrophils 76 % (50-85); Total Cells Counted 100
[2020-03-12 05:13] LABS: Hypochromasia 1+; Microcytosis 1+; Platelet Estimate Adequate; Polychromasia Slight
[2020-03-12 05:30] LABS: Calcium 8.1 MG/DL (8.5-10.1); Osmolality,Calculated 285.1 MOS/KG (273-304)
[2020-03-12] MEDS: hydrALAZINE 20 MG/1 ML VIAL IV PRN (05:44)
[2020-03-12] MEDS: PANTOPRAZOLE 40 MG VIAL IV SCH (08:55)
[2020-03-12] MEDS: CALCIUM CARBONATE CHEW 500 MG TABLET PO SCH ×2 (08:56→21:40)
[2020-03-12] MEDS: HEPARIN IV SCH ×2 (08:56→13:10)
[2020-03-12] MEDS: MULTIVITAMIN LIQUID (CENTRUM) 60 ML BOTTLE PO SCH (08:56)
[2020-03-12] MEDS: SODIUM CHLORIDE 0.45% IV SCH ×2 (08:56→13:10)
[2020-03-12] MEDS: OLOPATADINE 0.1% OPH SOLN 5 ML BOTTLE BOTH EYES SCH ×2 (08:56→21:40)
[2020-03-12] MEDS: DOCUSATE SODIUM 100 MG/10 ML UDCUP PO SCH ×2 (08:56→21:39)
[2020-03-12] MEDS: MONTELUKAST 10 MG TABLET PO SCH (08:56)
[2020-03-12] MEDS: MICAFUNGIN 50 MG, MICAFUNGIN 100 MG in SODIUM CHLORIDE 0.9% 100 ML IV SCH (10:28)
[2020-03-12] MEDS: methylPREDNISolone SOD SUC 40 MG/1 ML VIAL IV SCH ×2 (10:28→21:40)
[2020-03-12] MEDS: NOREPINEPHRINE 16 MG in SODIUM CHLORIDE 0.9% 234 ML IV PRN (10:39)
[2020-03-12] MEDS: MEROPENEM 1,000 MG in SODIUM CHLORIDE 0.9% 100 ML IV SCH (15:09)
[2020-03-12] MEDS: INSULIN GLARGINE 100 UNIT/ML SUBCUT SCH (21:39)
[2020-03-13] MEDS: INSULIN LISPRO 100 UNIT/ML SUBCUT SCH ×4 (00:15→17:25)
[2020-03-13 05:08] LABS: ABG Base Excess -4.7 MMOL/L (-2.5-2.5); ABG HCO3 20.5 MMOL/L (20-26); ABG Oxygen Saturation 99.1 % (95-100); ABG PH 7.333 (7.35-7.45); ABG TCO2 19.6 MMOL/L (23-27)
[2020-03-13 05:20] LABS: Basophils # 0.1 10*3/uL (0.0-0.2); Basophils % 0.3 % (0.0-0.8); Eosinophils # 0.1 10*3/uL (0.0-0.87); Eosinophils % 0.4 % (0.00-10.9); Hematocrit 23.6 VOL% (35.7-47.0); Hemoglobin 7.3 GM/DL (12.0-16.0); Immature Granulocytes % 11.5 %; Immature Granulocytes Absolute 3.43 #; Lymphocytes # 1.3 10*3/uL (1.4-4.0); Lymphocytes % 4.4 % (21.3-54.2); Mean Corpuscular HGB Conc 30.9 GM/DL (32-36); Mean Corpuscular Volume 90.1 FL (87-102); Mean Platelet Volume 10.5 FL (9.6-12.0); Monocytes % 3.1 % (1.7-12.7); NRBC # 0.12 10*3/uL; Neutrophils % 80.3 % (38.7-73.9); Platelet Count 227 T/CUMM (130-400); Red Blood Count 2.62 MC/CUMM (3.8-5.5); Red Cell Distribution Width 16.7 % (9.3-17.3)
[2020-03-13] MEDS: HEPARIN IV SCH ×3 (05:29→22:35)
[2020-03-13] MEDS: SODIUM CHLORIDE 0.45% IV SCH ×3 (05:29→22:35)
[2020-03-13 05:33] LABS: Calcium 7.7 MG/DL (8.5-10.1); Osmolality,Calculated 278.8 MOS/KG (273-304)
[2020-03-13 05:49] LABS: Band Neutrophils 9 % (0-10); Hypochromasia Slight; Lymphocytes 9 % (20-55); Myelocytes 1 %; Platelet Estimate Adequate; Segmented Neutrophils 76 % (50-85); Total Cells Counted 100
[2020-03-13 05:50] LABS: Microcytosis 1+
[2020-03-13] MEDS: PANTOPRAZOLE 40 MG VIAL IV SCH (08:00)
[2020-03-13] MEDS: DOCUSATE SODIUM 100 MG/10 ML UDCUP PO SCH ×2 (08:01→20:38)
[2020-03-13] MEDS: MONTELUKAST 10 MG TABLET PO SCH (08:01)
[2020-03-13] MEDS: MULTIVITAMIN LIQUID (CENTRUM) 60 ML BOTTLE PO SCH (08:01)
[2020-03-13] MEDS: OLOPATADINE 0.1% OPH SOLN 5 ML BOTTLE BOTH EYES SCH ×2 (08:01→20:38)
[2020-03-13] MEDS: CALCIUM CARBONATE CHEW 500 MG TABLET PO SCH ×2 (08:02→20:38)
[2020-03-13] MEDS: methylPREDNISolone SOD SUC 40 MG/1 ML VIAL IV SCH ×2 (09:30→21:00)
[2020-03-13] MEDS: fentaNYL INJ 1,250 MCG in SODIUM CHLORIDE 0.9% 225 ML IV PRN ×2 (10:33→22:00)
[2020-03-13] MEDS: MICAFUNGIN 50 MG, MICAFUNGIN 100 MG in SODIUM CHLORIDE 0.9% 100 ML IV SCH (10:40)
[2020-03-13] MEDS ORDERED: ALBUMIN 25% 25 GM in PREMIX 1 EACH IV ONE (12:45)
[2020-03-13] MEDS: MEROPENEM 1,000 MG in SODIUM CHLORIDE 0.9% 100 ML IV SCH ×2 (14:25)
[2020-03-13] MEDS: SODIUM BICARBONATE 650 MG TABLET PO SCH (20:38)
[2020-03-13] MEDS: INSULIN GLARGINE 100 UNIT/ML SUBCUT SCH (20:38)
[2020-03-14] MEDS: MEROPENEM 1,000 MG in SODIUM CHLORIDE 0.9% 100 ML IV SCH ×2 (00:20→12:29)
[2020-03-14] MEDS: INSULIN LISPRO 100 UNIT/ML SUBCUT SCH ×4 (00:20→18:21)
[2020-03-14 03:58] LABS: ABG Base Excess -0.8 MMOL/L (-2.5-2.5); ABG HCO3 23.7 MMOL/L (20-26); ABG PCO2 45.1 MM HG (35-48); ABG PH 7.348 (7.35-7.45); ABG PO2 84.5 MM HG (80-95); ABG TCO2 23.6 MMOL/L (23-27)
[2020-03-14 04:48] LABS: Basophils # 0.1 10*3/uL (0.0-0.2); Basophils % 0.2 % (0.0-0.8); Eosinophils % 0.1 % (0.00-10.9); Hematocrit 22.8 VOL% (35.7-47.0); Hemoglobin 6.9 GM/DL (12.0-16.0); Immature Granulocytes % 6.3 %; Immature Granulocytes Absolute 2.09 #; Lymphocytes # 0.9 10*3/uL (1.4-4.0); Lymphocytes % 2.6 % (21.3-54.2); Mean Corpuscular HGB Conc 30.3 GM/DL (32-36); Mean Corpuscular Volume 90.8 FL (87-102); Mean Platelet Volume 10.9 FL (9.6-12.0); Monocytes % 2.5 % (1.7-12.7); NRBC # 0.16 10*3/uL; Neutrophils % 88.3 % (38.7-73.9); Platelet Count 233 T/CUMM (130-400); Red Blood Count 2.51 MC/CUMM (3.8-5.5); Red Cell Distribution Width 17.4 % (9.3-17.3); White Blood Count 33.1 T/CUMM (4-12)
[2020-03-14 05:13] LABS: Calcium 7.3 MG/DL (8.5-10.1); Osmolality,Calculated 285.8 MOS/KG (273-304)
[2020-03-14 05:33] LABS: Band Neutrophils 12 % (0-10); Hypochromasia 1+; Lymphocytes 4 % (20-55); Metamyelocytes 1 %; Microcytosis 1+; Myelocytes 1 %; Polychromasia Slight; Segmented Neutrophils 80 % (50-85); Total Cells Counted 100
[2020-03-14 05:34] LABS: Platelet Estimate Normal
[2020-03-14] MEDS: OLOPATADINE 0.1% OPH SOLN 5 ML BOTTLE BOTH EYES SCH ×2 (08:03→20:46)
[2020-03-14] MEDS: HEPARIN IV SCH ×2 (08:03→17:31)
[2020-03-14] MEDS: PANTOPRAZOLE 40 MG VIAL IV SCH (08:03)
[2020-03-14] MEDS: SODIUM CHLORIDE 0.45% IV SCH ×2 (08:03→17:31)
[2020-03-14] MEDS: DOCUSATE SODIUM 100 MG/10 ML UDCUP PO SCH ×2 (08:03→20:46)
[2020-03-14] MEDS: MULTIVITAMIN LIQUID (CENTRUM) 60 ML BOTTLE PO SCH (08:03)
[2020-03-14] MEDS: CALCIUM CARBONATE CHEW 500 MG TABLET PO SCH ×2 (08:04→20:46)
[2020-03-14] MEDS: SODIUM BICARBONATE 650 MG TABLET PO SCH ×3 (08:04→20:46)
[2020-03-14] MEDS: MONTELUKAST 10 MG TABLET PO SCH (08:04)
[2020-03-14] MEDS ORDERED: SODIUM CHLORIDE 0.9% 1,000 ML IV PRN (08:56)
[2020-03-14] MEDS: fentaNYL INJ 1,250 MCG in SODIUM CHLORIDE 0.9% 225 ML IV PRN ×2 (09:14→20:48)
[2020-03-14] MEDS: methylPREDNISolone SOD SUC 40 MG/1 ML VIAL IV SCH ×2 (09:47→21:32)
[2020-03-14] MEDS: MICAFUNGIN 50 MG, MICAFUNGIN 100 MG in SODIUM CHLORIDE 0.9% 100 ML IV SCH (09:55)
[2020-03-14] MEDS: INSULIN GLARGINE 100 UNIT/ML SUBCUT SCH (20:46)
[2020-03-15] MEDS: INSULIN LISPRO 100 UNIT/ML SUBCUT SCH ×4 (00:12→17:39)
[2020-03-15] MEDS: MEROPENEM 1,000 MG in SODIUM CHLORIDE 0.9% 100 ML IV SCH ×2 (00:13→14:37)
[2020-03-15 04:13] LABS: ABG Base Excess -3.2 MMOL/L (-2.5-2.5); ABG HCO3 21.7 MMOL/L (20-26); ABG Oxygen Saturation 97.3 % (95-100); ABG PCO2 40.6 MM HG (35-48); ABG PH 7.345 (7.35-7.45); ABG PO2 96.7 MM HG (80-95); ABG TCO2 20.8 MMOL/L (23-27)
[2020-03-15 04:18] LABS: Basophils # 0.1 10*3/uL (0.0-0.2); Basophils % 0.3 % (0.0-0.8); Eosinophils % 0.1 % (0.00-10.9); Hematocrit 25.7 VOL% (35.7-47.0); Hemoglobin 7.9 GM/DL (12.0-16.0); Immature Granulocytes % 7.3 %; Immature Granulocytes Absolute 1.61 #; Lymphocytes # 0.7 10*3/uL (1.4-4.0); Lymphocytes % 2.9 % (21.3-54.2); Mean Corpuscular HGB Conc 30.7 GM/DL (32-36); Mean Corpuscular Volume 92.1 FL (87-102); Mean Platelet Volume 10.8 FL (9.6-12.0); Monocytes % 3.6 % (1.7-12.7); NRBC # 0.15 10*3/uL; Neutrophils % 85.8 % (38.7-73.9); Platelet Count 240 T/CUMM (130-400); Red Blood Count 2.79 MC/CUMM (3.8-5.5); Red Cell Distribution Width 16.9 % (9.3-17.3); White Blood Count 22.1 T/CUMM (4-12)
[2020-03-15 04:33] LABS: Calcium 7.3 MG/DL (8.5-10.1); Osmolality,Calculated 291.8 MOS/KG (273-304)
[2020-03-15 07:30] LABS: Band Neutrophils 4 % (0-10); Hypochromasia 1+; Lymphocytes 5 % (20-55); Microcytosis 1+; Polychromasia Slight; Segmented Neutrophils 89 % (50-85); Total Cells Counted 100
[2020-03-15 07:31] LABS: Platelet Estimate Normal
[2020-03-15] MEDS: PANTOPRAZOLE 40 MG VIAL IV SCH (08:09)
[2020-03-15] MEDS: DOCUSATE SODIUM 100 MG/10 ML UDCUP PO SCH ×2 (08:10→21:10)
[2020-03-15] MEDS: MONTELUKAST 10 MG TABLET PO SCH (08:10)
[2020-03-15] MEDS: MULTIVITAMIN LIQUID (CENTRUM) 60 ML BOTTLE PO SCH (08:10)
[2020-03-15] MEDS: ERGOCALCIFEROL 50,000 UNIT CAPSULE PO SCH (08:10)
[2020-03-15] MEDS: CALCIUM CARBONATE CHEW 500 MG TABLET PO SCH ×2 (08:10→21:10)
[2020-03-15] MEDS: OLOPATADINE 0.1% OPH SOLN 5 ML BOTTLE BOTH EYES SCH ×2 (08:10→21:10)
[2020-03-15] MEDS: SODIUM BICARBONATE 650 MG TABLET PO SCH ×3 (08:10→21:10)
[2020-03-15] MEDS: fentaNYL INJ 1,250 MCG in SODIUM CHLORIDE 0.9% 225 ML IV PRN (08:40)
[2020-03-15] MEDS: methylPREDNISolone SOD SUC 40 MG/1 ML VIAL IV SCH ×2 (09:35→21:10)
[2020-03-15] MEDS: HEPARIN IV SCH ×2 (09:57→10:56)
[2020-03-15] MEDS: SODIUM CHLORIDE 0.45% IV SCH ×2 (09:57→10:56)
[2020-03-15] MEDS ORDERED: COLISTIMETHATE 300 MG in SODIUM CHLORIDE 0.9% 100 ML IV ONE (10:00)
[2020-03-15] MEDS ORDERED: ROCURONIUM 100 MG/10 ML VIAL IV ONE ×2 (11:40→11:47)
[2020-03-15] MEDS ORDERED: ETOMIDATE 20 MG/10 ML VIAL IV ONE (11:41)
[2020-03-15] MEDS: ENOXAPARIN 30 MG/0.3 ML SYRINGE SUBCUT SCH (15:26)
[2020-03-15] MEDS: INSULIN GLARGINE 100 UNIT/ML SUBCUT SCH (21:10)
[2020-03-16] MEDS: INSULIN LISPRO 100 UNIT/ML SUBCUT SCH ×4 (01:17→17:53)
[2020-03-16] MEDS: MEROPENEM 1,000 MG in SODIUM CHLORIDE 0.9% 100 ML IV SCH ×2 (01:17→13:17)
[2020-03-16 04:29] LABS: ABG Base Excess -4.5 MMOL/L (-2.5-2.5); ABG HCO3 20.6 MMOL/L (20-26); ABG Oxygen Saturation 97.5 % (95-100); ABG PCO2 39.9 MM HG (35-48); ABG TCO2 19.6 MMOL/L (23-27)
[2020-03-16 04:37] LABS: Basophils # 0.1 10*3/uL (0.0-0.2); Basophils % 0.3 % (0.0-0.8); Eosinophils # 0.1 10*3/uL (0.0-0.87); Eosinophils % 0.5 % (0.00-10.9); Hematocrit 27.2 VOL% (35.7-47.0); Hemoglobin 8.3 GM/DL (12.0-16.0); Immature Granulocytes % 7.6 %; Immature Granulocytes Absolute 1.42 #; Lymphocytes # 0.7 10*3/uL (1.4-4.0); Lymphocytes % 3.5 % (21.3-54.2); Mean Corpuscular HGB Conc 30.5 GM/DL (32-36); Mean Corpuscular Volume 91.3 FL (87-102); Mean Platelet Volume 10.5 FL (9.6-12.0); Monocytes % 4.4 % (1.7-12.7); NRBC # 0.08 10*3/uL; Neutrophils % 83.7 % (38.7-73.9); Platelet Count 272 T/CUMM (130-400); Red Blood Count 2.98 MC/CUMM (3.8-5.5); Red Cell Distribution Width 17.4 % (9.3-17.3); White Blood Count 18.6 T/CUMM (4-12)
[2020-03-16 05:01] LABS: Band Neutrophils 4 % (0-10); Eosinophils 1 % (0-10); Lymphocytes 4 % (20-55); Segmented Neutrophils 89 % (50-85); Total Cells Counted 100
[2020-03-16 05:02] LABS: Hypochromasia 1+; Platelet Estimate Normal; Polychromasia Few
[2020-03-16 05:12] LABS: Calcium 7.6 MG/DL (8.5-10.1)
[2020-03-16] MEDS: fentaNYL INJ 1,250 MCG in SODIUM CHLORIDE 0.9% 225 ML IV PRN ×2 (07:39→22:35)
[2020-03-16 07:41] LABS: SARS-CoV-2 Total Ab Interp Reactive
[2020-03-16] MEDS: MULTIVITAMIN LIQUID (CENTRUM) 60 ML BOTTLE PO SCH (08:00)
[2020-03-16] MEDS: CALCIUM CARBONATE CHEW 500 MG TABLET PO SCH ×2 (08:00→20:24)
[2020-03-16] MEDS: MONTELUKAST 10 MG TABLET PO SCH (08:00)
[2020-03-16] MEDS: DOCUSATE SODIUM 100 MG/10 ML UDCUP PO SCH ×2 (08:00→20:24)
[2020-03-16] MEDS: PANTOPRAZOLE 40 MG VIAL IV SCH (08:01)
[2020-03-16] MEDS: SODIUM BICARBONATE 650 MG TABLET PO SCH ×3 (08:01→20:24)
[2020-03-16] MEDS: OLOPATADINE 0.1% OPH SOLN 5 ML BOTTLE BOTH EYES SCH ×2 (08:02→20:24)
[2020-03-16] MEDS: methylPREDNISolone SOD SUC 40 MG/1 ML VIAL IV SCH ×2 (09:30→23:36)
[2020-03-16] MEDS: COLISTIMETHATE 150 MG in SODIUM CHLORIDE 0.9% 100 ML IV SCH (10:10)
[2020-03-16] MEDS: ENOXAPARIN 30 MG/0.3 ML SYRINGE SUBCUT SCH (12:00)
[2020-03-16] MEDS ORDERED: ALBUMIN 25% 25 GM in PREMIX 1 EACH IV SCH (15:00)
[2020-03-16] MEDS: INSULIN GLARGINE 100 UNIT/ML SUBCUT SCH (20:24)
[2020-03-17] MEDS: MEROPENEM 1,000 MG in SODIUM CHLORIDE 0.9% 100 ML IV SCH ×2 (00:07→13:14)
[2020-03-17 05:00] LABS: ABG Base Excess -0.9 MMOL/L (-2.5-2.5); ABG HCO3 23.7 MMOL/L (20-26); ABG Oxygen Saturation 98.5 % (95-100); ABG PCO2 47.9 MM HG (35-48); ABG PH 7.329 (7.35-7.45); ABG TCO2 23.8 MMOL/L (23-27); Allen Test Positive; Pt O2 Delivery Device Ventilator
[2020-03-17 05:26] LABS: Basophils % 0.2 % (0.0-0.8); Eosinophils # 0.2 10*3/uL (0.0-0.87); Eosinophils % 1.3 % (0.00-10.9); Hematocrit 24.7 VOL% (35.7-47.0); Hemoglobin 7.6 GM/DL (12.0-16.0); Immature Granulocytes % 10.4 %; Immature Granulocytes Absolute 1.31 #; Lymphocytes # 0.6 10*3/uL (1.4-4.0); Lymphocytes % 5.1 % (21.3-54.2); Mean Corpuscular HGB Conc 30.8 GM/DL (32-36); Mean Corpuscular Volume 91.1 FL (87-102); Mean Platelet Volume 10.4 FL (9.6-12.0); Monocytes % 4.8 % (1.7-12.7); NRBC # 0.07 10*3/uL; Neutrophils % 78.2 % (38.7-73.9); Platelet Count 226 T/CUMM (130-400); Red Blood Count 2.71 MC/CUMM (3.8-5.5); Red Cell Distribution Width 17.6 % (9.3-17.3); White Blood Count 12.6 T/CUMM (4-12)
[2020-03-17 05:34] LABS: Calcium 7.7 MG/DL (8.5-10.1); Osmolality,Calculated 285.8 MOS/KG (273-304)
[2020-03-17 05:55] LABS: Band Neutrophils 6 % (0-10); Lymphocytes 11 % (20-55); Metamyelocytes 1 %; Microcytosis 1+; Nucleated Red Blood Cells 3 (0-5); Segmented Neutrophils 77 % (50-85); Total Cells Counted 100
[2020-03-17 05:56] LABS: Hypochromasia 1+; Ovalocytes Slight; Platelet Estimate Normal; Polychromasia Slight
[2020-03-17] MEDS: INSULIN LISPRO 100 UNIT/ML SUBCUT SCH ×4 (05:58→17:17)
[2020-03-17] MEDS: MULTIVITAMIN LIQUID (CENTRUM) 60 ML BOTTLE PO SCH (07:59)
[2020-03-17] MEDS: PANTOPRAZOLE 40 MG VIAL IV SCH (07:59)
[2020-03-17] MEDS: DOCUSATE SODIUM 100 MG/10 ML UDCUP PO SCH ×2 (07:59→20:30)
[2020-03-17] MEDS: CALCIUM CARBONATE CHEW 500 MG TABLET PO SCH ×2 (08:00→20:30)
[2020-03-17] MEDS: SODIUM BICARBONATE 650 MG TABLET PO SCH (08:00)
[2020-03-17] MEDS: MONTELUKAST 10 MG TABLET PO SCH (08:00)
[2020-03-17] MEDS: OLOPATADINE 0.1% OPH SOLN 5 ML BOTTLE BOTH EYES SCH ×2 (08:01→20:30)
[2020-03-17] MEDS: COLISTIMETHATE 150 MG in SODIUM CHLORIDE 0.9% 100 ML IV SCH (10:05)
[2020-03-17] MEDS: methylPREDNISolone SOD SUC 40 MG/1 ML VIAL IV SCH ×2 (10:06→22:37)
[2020-03-17] MEDS: INSULIN GLARGINE 100 UNIT/ML SUBCUT SCH (20:30)
[2020-03-18] MEDS: INSULIN LISPRO 100 UNIT/ML SUBCUT SCH ×2 (00:57→06:05)
[2020-03-18] MEDS: MEROPENEM 1,000 MG in SODIUM CHLORIDE 0.9% 100 ML IV SCH (00:58)
[2020-03-18] MEDS: fentaNYL INJ 1,250 MCG in SODIUM CHLORIDE 0.9% 225 ML IV PRN (02:00)
[2020-03-18 04:46] LABS: ABG Base Excess -2.8 MMOL/L (-2.5-2.5); ABG HCO3 23.2 MMOL/L (20-26); ABG Oxygen Saturation 97.4 % (95-100); ABG PCO2 46.1 MM HG (35-48); ABG PH 7.319 (7.35-7.45); ABG PO2 107.2 MM HG (80-95); ABG TCO2 24.6 MMOL/L (23-27); Allen Test Positive; Pt O2 Delivery Device Ventilator
[2020-03-18 05:04] LABS: Basophils % 0.2 % (0.0-0.8); Eosinophils # 0.2 10*3/uL (0.0-0.87); Eosinophils % 1.4 % (0.00-10.9); Hematocrit 25.4 VOL% (35.7-47.0); Hemoglobin 7.5 GM/DL (12.0-16.0); Immature Granulocytes % 12.6 %; Immature Granulocytes Absolute 1.43 #; Lymphocytes # 0.8 10*3/uL (1.4-4.0); Lymphocytes % 6.7 % (21.3-54.2); Mean Corpuscular HGB Conc 29.5 GM/DL (32-36); Mean Platelet Volume 10.1 FL (9.6-12.0); Monocytes % 5.5 % (1.7-12.7); NRBC # 0.03 10*3/uL; Neutrophils % 73.6 % (38.7-73.9); Platelet Count 241 T/CUMM (130-400); Red Blood Count 2.73 MC/CUMM (3.8-5.5); Red Cell Distribution Width 17.2 % (9.3-17.3); White Blood Count 11.3 T/CUMM (4-12)
[2020-03-18 05:20] LABS: Calcium 7.8 MG/DL (8.5-10.1)
[2020-03-18 05:28] LABS: Band Neutrophils 3 % (0-10); Hypochromasia 1+; Lymphocytes 8 % (20-55); Microcytosis 1+; Myelocytes 2 %; Platelet Estimate Adequate; Segmented Neutrophils 80 % (50-85); Total Cells Counted 100
[2020-03-18] MEDS ORDERED: SUCCINYLCHOLINE 200 MG/10 ML VIAL ONE (07:57)
[2020-03-18] MEDS: DOCUSATE SODIUM 100 MG/10 ML UDCUP PO SCH (10:02)
[2020-03-18] MEDS: MULTIVITAMIN LIQUID (CENTRUM) 60 ML BOTTLE PO SCH (10:02)
[2020-03-18] MEDS: OLOPATADINE 0.1% OPH SOLN 5 ML BOTTLE BOTH EYES SCH (10:02)
[2020-03-18 10:03] VITALS: BP 190/94
[2020-03-18] MEDS: methylPREDNISolone SOD SUC 40 MG/1 ML VIAL IV SCH (10:03)
[2020-03-18] MEDS: CALCIUM CARBONATE CHEW 500 MG TABLET PO SCH (10:03)
[2020-03-18] MEDS: PANTOPRAZOLE 40 MG VIAL IV SCH (10:03)
[2020-03-18] MEDS: MONTELUKAST 10 MG TABLET PO SCH (10:03)
[2020-03-18] MEDS: COLISTIMETHATE 150 MG in SODIUM CHLORIDE 0.9% 100 ML IV SCH (10:03)
== END 2020-03-18 08:13 | disposition expired | DRG 4 ==
LOC: SUATTDRO 21:45 → N.2E 21:45 → N.CC 02-18 10:15
PROVIDERS: ADMIT Internal Medicine; ATTEND Family Medicine